=== PATIENT | female | born 1980 | race Caucasian/White ===

== ENCOUNTER 2016-08-10 05:45 | Inpatient (IN) | payer BC ==
--- NOTE | 2016-08-09 06:41 | P.HPOB ---
History of Present Illness H&P Date: 08/09/16 Chief Complaint: Patient is presenting for repeat and tubal ligation. This patient is a pleasant 36-year-old 2 para 1 female estimated date of confinement 08/17/2016 estimated gestational age 39-0/7 weeks who presents to labor and delivery for requested repeat section. Patient's care has been uncomplicated with the exception of large for gestational age. Patient's had a previous section. At this point as requested repeat and was also requesting permanent sterilization. Review of Systems Constitutional: Denies chills, Denies fever Ears, nose, mouth and throat: Denies headache, Denies sore throat Cardiovascular: Denies chest pain, Denies shortness of breath Respiratory: Denies cough Gastrointestinal: Reports heartburn Genitourinary: Reports Menstruation: Reports amenorrhea Musculoskeletal: Denies myalgias Integumentary: Denies pruritus, Denies rash Neurological: Denies numbness, Denies weakness Psychiatric: Denies anxiety, Denies depression Endocrine: Denies fatigue, Denies weight change Past Medical History Past Medical History: No Reported History History of Any Multi-Drug Resistant Organisms: None Reported Past Surgical History: Section, Cholecystectomy, Tonsillectomy Past Anesthesia/Blood Transfusion Reactions: Family History of Problems w/ Anesthesia, Motion Sickness, Postoperative Nausea & Vomiting (PONV) Additional Past Anesthesia/Blood Transfusion Reaction / Comment(s): FAMILY HISTORY OF PONV Past Psychological History: No Psychological Hx Reported Smoking Status: Never smoker Past Alcohol Use History: None Reported Past Drug Use History: None Reported - Past Family History Father Family Medical History: Cancer, Diabetes Mellitus Additional Family Medical History / Comment(s): skin cancer Mother Family Medical History: Cancer Additional Family Medical History / Comment(s): breast cancer Medications and Allergies Home Medications Medication Instructions Recorded Confirmed Type Pnv with Ca,No.72/Iron/FA 1 each PO DAILY 08/02/16 08/02/16 History [ Plus Tablet] Allergies Allergy/AdvReac Type Severity Reaction Status Date / Time erythromycin base Allergy Rash/Hives Verified 08/02/16 12:30 [Erythromycin Base] Penicillins Allergy Rash/Hives Verified 08/02/16 12:30 Sulfa (Sulfonamide Allergy Rash/Hives Verified 08/02/16 12:30 Antibiotics) codeine phosphate AdvReac Vomiting Verified 08/02/16 12:30 [From Tylenol-Codeine #3] Exam - OBG Physical Exam Abdomen: bowel sounds normal, no diffuse tenderness, no bruit present, no guarding noted, no hepatomegaly, no splenomegaly, no mass Vulva: both: normal Vagina: normal moisture, no discharge Cervix: Cervix in the office is closed and thick. Cervix: no lesion, no discharge Uterus: enlarged (Fundal height is significantly larger than dates consistent with macrosomia and maternal obesity.) Results blood work shows she is A positive, rubella immune, RPR nonreactive, HIV nonreactive, hepatitis B negative, Glucola was abnormal with a normal three- hour gtt., ultrasound has shown macrosomia, group B strep was negative. Patient was counseled as to her age and increased risk of genetic disorders etc. she had declined any special testing by maternal medicine. Assessment and Plan (1) Third trimester Narrative/Plan: This is a pleasant 36-year-old 2 para 1 female 39-0/7 weeks gestation with previous section who is requesting repeat section and also requesting permanent sterilization. Plan at this time is repeat low transverse section and bilateral partial salpingectomy. Patient does understand that a tubal ligation is considered permanent, there is a failure rate of approximately 20-25 per thousand procedures done. She understands if she did become she has a 50% chance of tubal or an ectopic . Patient also understands surgery itself and apparently has risks including risks of infection, bleeding, possible injury to bowel, bladder, vessels, and other organs. Patient understands risk of DVT and pulmonary embolism. All the patient's questions are answered written consent is obtained. Status: Acute (2) Previous delivery affecting Status: Acute (3) Family planning Status: Acute (4) Maternal obesity affecting , antepartum Status: Acute (5) Elderly multigravida Status: Acute
[2016-08-10] MEDS ORDERED: CITRIC ACID-SODIUM CITRATE 15 ML CUP PO ONE (05:57)
[2016-08-10] MEDS ORDERED: LACTATED RINGERS 1,000 ML IV ONE (05:57)
[2016-08-10] MEDS ORDERED: LACTATED RINGERS 1,000 ML IV SCH (05:57)
[2016-08-10 06:15] LABS: Basophils % (A) 0 %; CH 29.5; CHCM 33.5; Eosinophils # (A) 0.2 k/uL (0-0.7); Eosinophils % (A) 2 %; HCT 40.7 % (34.0-46.0); HDW 2.67; HGB 14.5 gm/dL (11.4-16.0); Luc # (Auto) 0.15; Luc % (Auto) 2; Lymphocytes # (A) 1.7 k/uL (1.0-4.8); Lymphocytes % (A) 17 %; MCH 31.5 pg (25.0-35.0); MCHC 35.6 g/dL (31.0-37.0); MCV 88.4 fL (80.0-100.0); Mean Platelet Volume 7.9; Monocytes # (A) 0.4 k/uL (0-1.0); Monocytes % (A) 4 %; Neutrophils # (A) 7.7 k/uL (1.3-7.7); Neutrophils % (A) 76 %; RDW 14.1 % (11.5-15.5); WBC 10.2 k/uL (3.8-10.6); WBC (Perox) 10.82
[2016-08-10 06:54] VITALS: BMI 47.4
[2016-08-10] MEDS ORDERED: ceFAZolin 3 GM in SODIUM CHLORIDE 0.9% 100 ML IVPB ONE (07:15)
[2016-08-10] MEDS ORDERED: MORPHINE SULFATE (PF) 0.3 MG/0.3 ML SYR ONE (07:43)
[2016-08-10] MEDS ORDERED: OXYTOCIN 10 UNIT/ML 1 ML VIAL IM ONE (07:43)
[2016-08-10] MEDS ORDERED: ONDANSETRON 4 MG/2 ML VIAL ONE (07:43)
[2016-08-10] MEDS ORDERED: KETOROLAC 30 MG/ML 1 ML VIAL ONE (07:43)
[2016-08-10] MEDS ORDERED: ePHEDrine 50 MG/ML 1 ML AMP ONE (07:43)
[2016-08-10] MEDS ORDERED: NALBUPHINE 10 MG/ML AMPUL ONE (07:43)
[2016-08-10] MEDS ORDERED: ACETAMINOPHEN TAB 325 MG TAB PO PRN (08:27)
[2016-08-10] MEDS ORDERED: METOCLOPRAMIDE 5 MG/ML 2 ML VIAL IVP PRN (08:27)
[2016-08-10] MEDS ORDERED: diphenhydrAMINE 25 MG CAP PO PRN (08:27)
[2016-08-10] MEDS ORDERED: HYDROcodone/APAP 5-325MG 1 EACH TAB PO PRN (08:27)
[2016-08-10] MEDS ORDERED: SIMETHICONE 80 MG CHEWABLE PO PRN (08:27)
[2016-08-10] MEDS ORDERED: diphenhydrAMINE 50 MG/ML 1 ML VIAL IVP PRN ×2 (08:27→11:53)
[2016-08-10] MEDS ORDERED: ZOLPIDEM 5 MG TAB PO PRN (08:27)
--- NOTE | 2016-08-10 08:31 | P.OP ---
Date of Procedure: 08/10/16 Preoperative Diagnosis: #1: 39 weeks intrauterine . #2: Previous section desires repeat. 3: Multi parity desires permanent sterilization. Postoperative Diagnosis: Same Procedure(s) Performed: #1: Repeat low transverse section. #2: Bilateral partial salpingectomy. Anesthesia: spinal Surgeon: Bogdan Connell Net Ui Developer #1: Mendez Fisher Estimated Blood Loss (ml): 800 Pathology: other (Placenta and bilateral fallopian tube segments) Condition: stable Disposition: floor Indications for Procedure: Please see dictated H&P for intimate details of this patient's admission. Brief summary this is a pleasant 36-year-old 2 para 1 female 39 weeks gestation who is admitted to labor and delivery for elective repeat section and also requesting permanent sterilization. Patient understands a tubal ligation is a permanent procedure that does have a failure rate however approximately 20-25 per thousand procedures done. She understands she does become she is a 50% chance of a tubal or an ectopic . Patient also understands that surgery itself and apparently has risks including risks of infection, bleeding, possible injury to bowel, bladder, vessels, and/ or other organs. She understands risk of DVT and pulmonary embolism. All the patient's questions are answered written consent is obtained. Operative Findings: This is a vigorous viable male infant Apgars 9 and 9 delivery time was 0756 hours. has spontaneous respirations and good cry and grossly appears normal. Description of Procedure: This patient has a Edmond catheter placed to straight drain. She is subsequently taken to the operating room where she sat up and spinal anesthetic is administered without incident. With an adequate level of anesthesia she has abdominal prep and drape. Scalpels and taken the previous Pfannenstiel incision is incised. A second scalpel is taken down the fascia and the fascia scored with scalpel. Fascial incision extended bilaterally using the Lopez scissors. The fascia is then dissected sharply off the rectus muscles with the Lopez scissors. The rectus muscles are , and the peritoneum identified , and entered sharply. Peritoneal incision extended superiorly and inferiorly without difficulty using the Metzenbaum scissors. Bladder blade is then placed. Bladder peritoneum was taken off the lower uterine segment sharply. Scalpels then taken low transverse uterine incision is then made. I then gently into the uterine cavity with a hemostat and there is loss of a large amount of clear fluid. This incision is extended bluntly. Infant's head is then guided through the incision mouth and nares are bulb suctioned. There is no evidence of a nuchal cord. We then have delivery the anterior and posterior shoulder and rest this infant's body. This is a vigorous viable male Apgars are 9 and 9 delivery time was 0756 hours. has spontaneous respirations and good cry and grossly appears normal. After delivery of the the umbilical cord is doubly clamped and cut it appears to be trivascular. The placenta is then manually extracted intact. The uterus is then externalized. Uterine incision is then closed using 0 Vicryl in a running fashion and good hemostasis is noted. Then turned my attention of the left fallopian tube approximately 4 cm from the cornual insertion a small window made to the mesial salpinx using Bovie cautery. Using a 2-0 silk I doubly ligate a segment of the tube. A proximally 2 cm segment of fallopian tubes excised and handed off to pathology. Cauterization is done of the tubal ends severe hemostatic. Then turned my attention of the right fallopian tube and using a similar technique a portion of the right tube was ligated and removed. With this done excess fluid is removed from the pelvis. Uterus placed back into the pelvis. The parietal peritoneum was identified. I inspected fallopian tubes once again the appear to be hemostatic. Peritoneum was then closed using 0 Vicryl running fashion. Rectus muscles reapproximated in 0 Vicryl interrupted fashion. Fascia is then closed using 0 PDS. Fascial incision is intact and hemostatic. Subcutaneous tissues and closed using a 3-0 Vicryl. Skin is and closed using luiz. All counts are correct 3. There are no complications. and mother are taken to the birthing suite in satisfactory condition.
[2016-08-10] MEDS: LACTATED RINGERS 1,000 ML IV SCH ×2 (09:12→14:32)
[2016-08-10] MEDS: OXYTOCIN 30 UNITS/500 ML NS 30 UNIT in SALINE 1 500ML.BAG IV SCH ×3 (09:18→21:38)
[2016-08-10] MEDS ORDERED: NALBUPHINE 10 MG/ML AMPUL IV PRN (11:53)
[2016-08-10] MEDS ORDERED: MORPHINE SULFATE 4 MG/ML SYRINGE IVP PRN (11:53)
[2016-08-10] MEDS ORDERED: NALOXONE 0.4 MG/ML 1 ML VIAL IV PRN (11:53)
[2016-08-10] MEDS ORDERED: ONDANSETRON 4 MG/2 ML VIAL IVP PRN (11:53)
[2016-08-10] MEDS: SENNOSIDES-DOCUSATE SODIUM 1 EACH TAB PO SCH (21:37)
[2016-08-11] MEDS: KETOROLAC 30 MG/ML 1 ML VIAL IVP PRN ×2 (03:32→12:06)
--- NOTE | 2016-08-11 06:05 | P.PNOBGPC ---
Subjective - Subjective Patient reports: Reports appetite normal, Reports voiding normally, Reports pain well controlled, Reports ambulating normally : doing well Objective - Vital Signs Latest vital signs: Vital Signs Temp Pulse Resp BP Pulse Ox 08/11/16 03:18 98.2 F 85 15 115/75 08/10/16 23:40 98.0 F 74 16 111/54 98 08/10/16 20:00 97.7 F 70 16 120/66 97 08/10/16 16:00 97.4 F L 65 16 118/68 08/10/16 12:53 97.8 F 69 16 100/69 08/10/16 10:28 95.3 F L 60 16 108/58 08/10/16 09:58 96.3 F L 78 16 155/60 94 L 08/10/16 09:28 96.6 F L 87 16 126/55 96 08/10/16 09:13 96.6 F L 76 16 121/67 95 08/10/16 08:58 96.3 F L 16 112/58 95 08/10/16 08:43 96.5 F L 87 16 120/64 98 08/10/16 08:28 96.1 F L 73 16 116/55 98 Intake and Output 08/10/16 08/10/16 08/11/16 14:59 22:59 06:59 Intake Total 900 Output Total 450 1700 1000 Balance -450 -800 -1000 Intake: Intake, IV Titration 900 Amount Lactated Ringers 1,000 ml 900 @ 125 mls/hr IV .Q8H CLAUDE Rx#:[id number] Output: Urine 100 1300 1000 Straight 1000 Uretheral (Edmond) 450 Emesis 350 400 Other: Voiding Method Indwelling Catheter Indwelling Catheter # Voids 1 0 - Exam Lungs: bilateral: normal Chest: Normal S1, Normal S2 Extremities: Present: normal Abdomen: Present: normal appearance, soft. Absent: distention, tenderness Incision: Present: normal, dry, intact Uterus: Present: normal, firm Assessment and Plan (1) Third trimester Narrative/Plan: Post operative day #1. Patient is resting without complaints. Vital signs are stable she is afebrile. Uterus is firm nontender and her incision is intact and dry. My impression is this is a normal postoperative course. Plan today is to check a CBC, advance her diet, allow her to shower, and encourage ambulation. Current Visit: Yes Status: Acute Code(s): Z33.1 - STATE, INCIDENTAL SNOMED Code(s): 62604158 (2) Previous delivery affecting Current Visit: Yes Status: Acute Code(s): O34.219 - MATERNAL CARE FOR UNSP TYPE SCAR FROM PREVIOUS DEL SNOMED Code(s): 086351775 (3) Family planning Current Visit: Yes Status: Acute Code(s): Z30.09 - ENCOUNTER FOR OT GENERAL CNSL AND ADVICE ON CONTRACEPTION SNOMED Code(s): 62440587 (4) Maternal obesity affecting , antepartum Current Visit: Yes Status: Acute Code(s): O99.210 - OBESITY COMPLICATING , UNSPECIFIED TRIMESTER; E66.9 - OBESITY, UNSPECIFIED SNOMED Code(s) : 620308314532 (5) Elderly multigravida Current Visit: Yes Status: Acute Code(s): O09.529 - SUPERVISION OF ELDERLY MULTIGRAVIDA, UNSPECIFIED TRIMESTER SNOMED Code(s): 716024784
[2016-08-11 08:05] LABS: Basophils % (A) 0 %; CH 29.6; CHCM 32.8; Eosinophils # (A) 0.1 k/uL (0-0.7); Eosinophils % (A) 1 %; HCT 35.7 % (34.0-46.0); HDW 2.57; Luc # (Auto) 0.11; Luc % (Auto) 1; Lymphocytes # (A) 1.1 k/uL (1.0-4.8); Lymphocytes % (A) 9 %; MCHC 31.9 g/dL (31.0-37.0); MCV 90.9 fL (80.0-100.0); Mean Platelet Volume 8.9; Monocytes # (A) 0.7 k/uL (0-1.0); Monocytes % (A) 5 %; Neutrophils # (A) 11.1 k/uL (1.3-7.7); Neutrophils % (A) 84 %; RBC 3.93 m/uL (3.80-5.40); RDW 14.3 % (11.5-15.5); WBC 13.2 k/uL (3.8-10.6); WBC (Perox) 13.85
[2016-08-11] MEDS: SENNOSIDES-DOCUSATE SODIUM 1 EACH TAB PO SCH ×2 (08:09→19:22)
[2016-08-11 08:11] LABS: HGB 11.4 gm/dL (11.4-16.0)
--- NOTE | 2016-08-11 08:18 | P.PN ---
Progress Note - Text Date: 08/11/2016 Time: 727 The patient is status post section Vital signs stable VAS: 0-10 Patient has no complaints of pain. The patient incurred some minimal itching yesterday, this itching is now subsiding. Pain meds to be managed by service.
[2016-08-11] MEDS: IBUPROFEN 600 MG TAB PO PRN (19:22)
[2016-08-12] MEDS: IBUPROFEN 600 MG TAB PO PRN ×2 (01:48→11:52)
--- NOTE | 2016-08-12 06:10 | P.PNOBGPC ---
Subjective - Subjective Patient reports: Reports appetite normal, Reports voiding normally, Reports pain well controlled, Reports ambulating normally : doing well Objective - Vital Signs Latest vital signs: Vital Signs Temp Pulse Resp BP 08/12/16 00:00 98.3 F 73 16 109/63 08/11/16 18:31 97.7 F 90 16 121/65 08/11/16 12:00 97.8 F 95 20 120/71 08/11/16 08:00 98.2 F 81 16 96/54 Intake and Output 08/11/16 08/11/16 08/12/16 14:59 22:59 06:59 Output Total 400 Balance -400 Output: Urine 400 Other: # Voids 1 3 - Exam Lungs: bilateral: normal Chest: Normal S1, Normal S2 Extremities: Present: normal Abdomen: Present: normal appearance, soft. Absent: distention, tenderness Incision: Present: normal, dry, intact Uterus: Present: normal, firm - Labs Labs: Abnormal Lab Results - Last 24 Hours (Table) 08/11/16 Range/Units 07:52 WBC 13.2 H (3.8-10.6) k/uL Neutrophils # 11.1 H (1.3-7.7) k/uL Assessment and Plan (1) Third trimester Narrative/Plan: Postoperative day #2. Patient is resting without complaints and wishes to go home. Vital signs are stable and she is afebrile. Uterus is firm nontender she 's having normal lochia. Her incision is intact and dry. Patient is tolerating regular diet, ambulating, and urinating without difficulty. My impression that she is having a normal postoperative course and stable for discharge home. Plan is to continue routine care discharge home later today. Current Visit: Yes Status: Acute Code(s): Z33.1 - STATE, INCIDENTAL SNOMED Code(s): 17736387 (2) Previous delivery affecting Current Visit: Yes Status: Acute Code(s): O34.219 - MATERNAL CARE FOR UNSP TYPE SCAR FROM PREVIOUS DEL SNOMED Code(s): 070166781 (3) Family planning Current Visit: Yes Status: Acute Code(s): Z30.09 - ENCOUNTER FOR OTH GENERAL CNSL AND ADVICE ON CONTRACEPTION SNOMED Code(s): 27958830 (4) Maternal obesity affecting , antepartum Current Visit: Yes Status: Acute Code(s): O99.210 - OBESITY COMPLICATING , UNSPECIFIED TRIMESTER; E66.9 - OBESITY, UNSPECIFIED SNOMED Code(s) : 014391933605 (5) Elderly multigravida Current Visit: Yes Status: Acute Code(s): O09.529 - SUPERVISION OF ELDERLY MULTIGRAVIDA, UNSPECIFIED TRIMESTER SNOMED Code(s): 903695662
--- NOTE | 2016-08-12 06:12 | P.DS ---
Providers Date of admission: 08/10/16 05:45 Expected date of discharge: 08/12/16 Attending physician: Bogdan Connell Primary care physician: Stated None - Discharge Diagnosis(es) (1) Third trimester Current Visit: Yes Status: Acute (2) Previous delivery affecting Current Visit: Yes Status: Acute (3) Family planning Current Visit: Yes Status: Acute (4) Maternal obesity affecting , antepartum Current Visit: Yes Status: Acute (5) Elderly multigravida Current Visit: Yes Status: Acute Hospital Course: Please see dictated H&P for intimate details of this patient's admission. In brief summary is a pleasant 36-year-old 2 para 1 female who is 39-0/7 weeks gestation who is admitted for elective repeat section and tubal ligation. Patient is admitted undergoes above-named surgeries. Please see dictated operative note. By postoperative 2 patient is doing well felt to be stable for discharge home follow up with me in 1 week. Procedures: Repeat low transverse section and bilateral partial salpingectomy. Patient Condition at Discharge: Good Plan - Discharge Summary New Discharge Prescriptions: HYDROcodone/APAP 5-325MG [[place] 5-325] 1 each PO Q4HR PRN #30 tab PRN Reason: Pain Ibuprofen [Motrin] 600 mg PO Q6HR PRN #40 tab PRN Reason: Mild Pain Or Fever >= 100.5 Discharge Medication List Pnv with Ca,No.72/Iron/FA [ Plus Tablet] 1 each PO DAILY 08/02/16 [ History] HYDROcodone/APAP 5-325MG [[place] 5-325] 1 each PO Q4HR PRN #30 tab 08/12/16 [Rx] Ibuprofen [Motrin] 600 mg PO Q6HR PRN #40 tab 08/12/16 [Rx] Follow up Appointment(s)/Referral(s): Bogdan Connell MD [STAFF PHYSICIAN] - 08/17/16 1:30 pm (She also has a check on September 22 at 9:45 AM.) Patient Instructions/Handouts: (DC) Activity/Diet/Wound Care/Special Instructions: No heavy lifting or strenuous activity for 6 weeks. No intercourse or anything per vagina for 6 weeks. Please call if any fever, chills, excessive vaginal bleeding, and/or abdominal pain. Discharge Disposition: HOME SELF-CARE
[2016-08-12 08:47] VITALS: BP 126/68; PULSE 74; RESP 18; TEMP 97.4
[2016-08-12] MEDS: SENNOSIDES-DOCUSATE SODIUM 1 EACH TAB PO SCH (08:47)
[2016-08-12] MEDS: LACTATED RINGERS 1,000 ML IV SCH (08:49)
== END 2016-08-12 12:14 | disposition home or self-care (01) | DRG 766 ==
LOC: 4FBP 05:45
PROVIDERS: ADMIT Obstetrics & Gynecology; ATTEND Obstetrics & Gynecology
PROC: 10D00Z1 Extraction of Products of Conception, Low, Open Approach (ICD-10-PCS; principal; 2016-08-10 08:00)
PROC: 0UB70ZZ Excision of Bilateral Fallopian Tubes, Open Approach (ICD-10-PCS; principal; 2016-08-10 08:00)
DX: O34.211 Maternal care for low transverse scar from previous cesarean delivery (principal); O99.214 Obesity complicating childbirth; Z37.0 Single live birth; O36.63X0 Maternal care for excessive fetal growth, third trimester, not applicable or unspecified; Z30.2 Encounter for sterilization; Z3A.39 39 weeks gestation of pregnancy; Z88.1 Allergy status to other antibiotic agents; Z88.5 Allergy status to narcotic agent; Z88.0 Allergy status to penicillin; Z88.2 Allergy status to sulfonamides; O09.523 Supervision of elderly multigravida, third trimester
CPT/HCPCS: 85025; 86850; 86900; 86901; 88302; 88307

== ENCOUNTER → 2016-12-20 | Outpatient (CLI) | payer BC | END | disposition home or self-care (01) | LOC: LABWHC1 15:44 | DX: Z53.9 Procedure and treatment not carried out, unspecified reason (principal) ==

== ENCOUNTER → 2017-03-21 | Outpatient (CLI) | payer BC | END | disposition home or self-care (01) | LOC: LABWHC1 15:50 | PROVIDERS: ATTEND Pathology Anatomic Pathology & Clinical Pathology | DX: Z11.4 Encounter for screening for human immunodeficiency virus [HIV] (principal) | CPT/HCPCS: 36415 ==

== ENCOUNTER → 2019-02-13 | Outpatient (CLI) | payer BC ==
[2019-02-13 19:32] LABS: Thyroid Peroxidase Antibodies <28.0 U/mL (0.0-60.0)
== END | disposition home or self-care (01) ==
LOC: LABWHC1 13:20
PROVIDERS: ATTEND Internal Medicine Endocrinology, Diabetes & Metabolism
DX: R53.83 Other fatigue (principal)
CPT/HCPCS: 36415; 82024; 82533; 82607; 84146; 84439; 84443; 84481; 86376

== ENCOUNTER 2020-02-24 06:20 | Day surgery (SDC) | payer BC ==
[2020-02-20 15:42] VITALS: BMI 41.5
--- NOTE | 2020-02-23 11:14 | P.HPOB ---
History of Present Illness H&P Date: 02/23/20 Chief Complaint: Menorrhagia This patient is a pleasant 39 yr females with longstanding menorrhagia who is requesting endometrial ablation for treatment. Evaluation has included a pelvis ultrasound that shows a small fibroid. She has declined trial of hormonal treatment. Review of Systems Genitourinary: Reports as per HPI Menstruation: Reports as per HPI, Reports period heavy Past Medical History Past Medical History: No Reported History Additional Past Medical History / Comment(s): on metformin for weight loss. heavy menstrual bleeding History of Any Multi-Drug Resistant Organisms: None Reported Past Surgical History: Section, Cholecystectomy, Tonsillectomy, Tubal Ligation Additional Past Surgical History / Comment(s): LIPOMA REMOVED FROM RT THIGH Past Anesthesia/Blood Transfusion Reactions: Family History of Problems w/ Anesthesia, Postoperative Nausea & Vomiting (PONV) Additional Past Anesthesia/Blood Transfusion Reaction / Comment(s): FAMILY HISTORY OF PONV Past Psychological History: No Psychological Hx Reported Smoking Status: Former smoker Past Alcohol Use History: None Reported Past Drug Use History: None Reported - Past Family History Father Family Medical History: Cancer, Diabetes Mellitus, Hypertension Additional Family Medical History / Comment(s): skin cancer Mother Family Medical History: Cancer Additional Family Medical History / Comment(s): breast cancer Medications and Allergies Home Medications Medication Instructions Recorded Confirmed Type FLUoxetine HCL [PROzac] 20 mg PO DAILY 02/20/20 02/20/20 History metFORMIN HCL [Glucophage] 500 mg PO DAILY 02/20/20 02/20/20 History Allergies Allergy/AdvReac Type Severity Reaction Status Date / Time erythromycin base Allergy Rash/Hives Verified 02/20/20 15:34 [Erythromycin Base] Penicillins Allergy Rash/Hives Verified 02/20/20 15:34 Sulfa (Sulfonamide Allergy Rash/Hives Verified 02/20/20 15:34 Antibiotics) codeine phosphate AdvReac Vomiting Verified 02/20/20 15:34 [From Tylenol-Codeine #3] Exam - OBG Physical Exam Abdomen: bowel sounds normal, no diffuse tenderness, no bruit present, no guarding noted, no hepatomegaly, no splenomegaly, no mass Vagina: normal moisture, no discharge Cervix: no lesion, no discharge Uterus: normal size, normal contour Results Ultrasound done earlier this year shows a 2.9cm fibroid. Assessment and Plan Assessment: This is a pleasant 39 yr female with menorrhagia requesting endometrial ablation for treatment. Plan is hysteroscopy, D&C and Novasure endometrial ablation. She and I have discussed this surgery and risks: infection, bleeding, possible uterine perforation and/or thermal injury. All of the patients questions have been answered and a written consent obtained. (1) Menorrhagia Status: Acute Code(s): N92.0 - EXCESSIVE AND FREQUENT MENSTRUATION WITH REGULAR CYCLE SNOMED Code(s): 770153431 (2) Uterine fibroid Status: Acute Code(s): D25.9 - LEIOMYOMA OF UTERUS, UNSPECIFIED SNOMED Code(s): 59147907
[~2020-02-24 06:20] MED LIST: DEXAMETHASONE SOD PHOSPHATE 10 MG/ML 1 ML VIAL IV ONE; HYDROmorphone 0.5 MG/0.5 ML SYRINGE IVP PRN; LACTATED RINGERS 1,000 ML IV SCH; LIDOCAINE 1% (10MG/ML) FOR IV START INTRADERMA PRN; ONDANSETRON 4 MG/2 ML VIAL IVP ONE; Pre Op ABX Message 1 EACH MISC MISCELLANE ONE; SCOPOLAMINE 1.5MG/72HR PATCH TRANSDERM ONE
[2020-02-24] MEDS ORDERED: ONDANSETRON 4 MG/2 ML VIAL ONE (07:01)
[2020-02-24 07:07] LABS: Glucose,Whole Blood 97 mg/dL (75-99)
[2020-02-24] MEDS ORDERED: MIDAZOLAM 2 MG/2 ML VIAL ONE (07:21)
[2020-02-24] MEDS ORDERED: fentaNYL (PF) 50 MCG/ML 2 ML AMP ONE (07:21)
[2020-02-24] MEDS ORDERED: LIDOCAINE 1% INJ 10MG/ML (20 ML MDV) ONE (07:21)
[2020-02-24] MEDS ORDERED: PROPOFOL 10 MG/ML 20 ML VIAL IV ONE (07:21)
[2020-02-24] MEDS ORDERED: GLYCOPYRROLATE 0.2 MG/ML 2 ML VIAL ONE (07:21)
[2020-02-24] MEDS ORDERED: KETOROLAC 30 MG/ML 1 ML VIAL ONE (07:21)
--- NOTE | 2020-02-24 08:01 | P.OP ---
Date of Procedure: 02/24/20 Preoperative Diagnosis: Menorrhagia Postoperative Diagnosis: Same Procedure(s) Performed: #1: Hysteroscopy. #2: Dilation and curettage. #3: NovaSure endometrial ablation Anesthesia: other (LMA) Surgeon: Bogdan Connell Estimated Blood Loss (ml): 15 Urine output (ml): 25 Pathology: other (Uterine curettings) Condition: stable Disposition: PACU Indications for Procedure: Please see dictated H&P for intimate details of this patient's admission. Brief summary this is a pleasant 39-year-old 2 para 2 female whose had long- standing menorrhagia and known uterine fibroid requesting trial of NovaSure endometrial ablation for treatment. Patient understands this surgery and risks including risks of infection, bleeding, possible uterine perforation, and/or thermal injury. All the patient's questions are answered and a written consent is obtained. Operative Findings: This patient had a normal-appearing endometrial cavity Description of Procedure: This patient is taken to the operating room where she is laid in the supine position. She subsequently undergoes general anesthesia without incident. With an adequate level of anesthesia she's placed in dorsal lithotomy position. At this time she has a vaginal and perineal prep and drape. Examination under anesthesia shows a mid position uterus of normal size. I placed a weighted speculum posterior vagina. The bladder is drained for 25 mL of clear urine. The anterior lip of the cervix and then grabbed with an Allis clamp. The uterus is then sounded to approximately 9 cm. Gentle dilation is done of the endocervix to allow the hysteroscope into the uterine cavity. Using saline solution hysteroscopy is performed uterine cavity is observed. There is no obvious growths. This time the cavity is measured at 6 cm in length. Hys teroscope was removed. The cervix is then dilated more to allow the small curette into the uterine cavity a gentle but thorough 4 quadrant curettage is then done. This done the NovaSure device is then opened it appears to be intact. It is set at a length of 6.0 cm and seated in place at 2.6 cm. It is then enabled and 86 W setting for 45 seconds. Cavity test is passed. With this done the NovaSure device is removed. Appears intact. Hysteroscopy is performed again and the endometrial cavity appears ablated up to the endocervix. With this completed the procedure is ended. The Allis clamp and weighted speculum were removed. All counts correct 3. There are no complications. Patient is awakened from anesthesia and taken recovery room in satisfactory condition
[2020-02-24 08:04] VITALS: TEMP 97.3
[2020-02-24 08:27] VITALS: RESP 16
[2020-02-24 09:10] VITALS: BP 120/69; PULSE 63
== END 2020-02-24 09:20 | disposition home or self-care (01) ==
LOC: OR 06:20
PROVIDERS: ATTEND Obstetrics & Gynecology
DX: N92.0 Excessive and frequent menstruation with regular cycle (principal); D25.9 Leiomyoma of uterus, unspecified; N84.0 Polyp of corpus uteri; E11.9 Type 2 diabetes mellitus without complications; E66.9 Obesity, unspecified; Z98.51 Tubal ligation status; Z90.89 Acquired absence of other organs; Z90.49 Acquired absence of other specified parts of digestive tract; Z98.890 Other specified postprocedural states; Z87.891 Personal history of nicotine dependence; Z83.3 Family history of diabetes mellitus; Z82.49 Family history of ischemic heart disease and other diseases of the circulatory system; Z80.8 Family history of malignant neoplasm of other organs or systems; Z80.3 Family history of malignant neoplasm of breast; Z79.84 Long term (current) use of oral hypoglycemic drugs; Z79.899 Other long term (current) drug therapy; Z88.1 Allergy status to other antibiotic agents; Z88.5 Allergy status to narcotic agent; Z88.0 Allergy status to penicillin; Z88.2 Allergy status to sulfonamides; Z68.41 Body mass index [BMI] 40.0-44.9, adult
CPT/HCPCS: 58563; 81025; 88305; J2250; J1100; J2405; J2001; J3010; J1885; J2704

== ENCOUNTER → 2021-04-01 | Outpatient (CLI) | payer BC ==
--- NOTE | 2021-04-05 12:30 | MM ---
Reason for exam: screening (asymptomatic). Last mammogram was performed 6 years and 4 months ago. History: Family history of breast cancer in mother at age 63. Took hormonal contraceptives for 16 years beginning at age 17. Physical Findings: A clinical breast exam by your physician is recommended on an annual basis and results should be correlated with mammographic findings. MG 3D Screening Mammo W/Cad Bilateral CC and MLO view(s) were taken. Prior study comparison: November 25, 2014, bilateral MG screening mammo w CAD. There are scattered fibroglandular densities. No significant changes when compared with prior studies. ASSESSMENT: Benign, BI-RAD 2 RECOMMENDATION: Routine screening mammogram of both breasts in 1 year.
== END | disposition home or self-care (01) ==
LOC: RADMAMWWP 14:29
PROVIDERS: ATTEND Obstetrics & Gynecology
DX: Z12.31 Encounter for screening mammogram for malignant neoplasm of breast (principal); Z80.3 Family history of malignant neoplasm of breast
CPT/HCPCS: 77063; 77067

== ENCOUNTER → 2021-05-03 | Outpatient (CLI) | payer BC ==
[2021-05-03 15:25] VITALS: BP 152/89; PULSE 88; RESP 18; TEMP 99; BMI 48.1
--- NOTE | 2021-05-03 15:56 | P.HPBAR ---
Bariatric H&P - History & Physicial H&P Date: 05/03/21 History & Physicial: Visit/CC: initial visit Patient initial contact: Initial weight: Initial weight in pounds: Height: 5 ft 5 in Initial BMI: Last weight: Current weight: 131.088 kg Current weight in pounds: 289.00 Current BMI: 48.1 [place] body weight (based on NIH guidelines): 56.699 kg Excess body weight loss: The patient is a 41 year-old F who presents for Bariatric Assessment. Patient presents today for presurgical consultation. She is extensive history. Her BMI is 48. Past Medical History Past Medical History: No Reported History Additional Past Medical History / Comment(s): on metformin for weight loss. heavy menstrual bleeding History of Any Multi-Drug Resistant Organisms: None Reported Past Surgical History: Section, Cholecystectomy, Tonsillectomy, Tubal Ligation, Uterine Ablation Additional Past Surgical History / Comment(s): LIPOMA REMOVED FROM RT THIGH Past Anesthesia/Blood Transfusion Reactions: Family History of Problems w/ Anesthesia, Postoperative Nausea & Vomiting (PONV) Additional Past Anesthesia/Blood Transfusion Reaction / Comm: FAMILY HISTORY OF PONV Past Psychological History: Anxiety Smoking Status: Former smoker Past Alcohol Use History: Occasional Additional Past Alcohol Use History / Comment(s): QUIT SMOKING 2003 Past Drug Use History: None Reported - Past Family History Father Family Medical History: Cancer, Diabetes Mellitus, Hypertension Additional Family Medical History / Comment(s): skin cancer Mother Family Medical History: Cancer Additional Family Medical History / Comment(s): breast cancer Surgical - Exam Vital Signs Temp Pulse Resp BP 99.0 F 88 18 152/89 05/03/21 15:20 05/03/21 15:20 05/03/21 15:20 05/03/21 15:20 - General well developed, well nourished, no distress - Eyes PERRL - ENT normal pinna - Neck no masses - Respiratory normal expansion - Cardiovascular Rhythm: regular - Abdomen Abdomen: soft, non tender Bariatric Assessment & Plan Plan: Morbid obesity. Patient has an excellent understanding of sleeve yesterday. She'll be scheduled for EGD. Bariatric Checklist Checklist: Plan: Checklist: EGD: 1. Hiatal hernia: 2. H. Pylori: HgbA1c: Vitamin D: Smoking: Never smoker Primary care physician referral: Dr. Dumont Psychiatry clearance: Cardiology clearance: Sleep study: Diet journal: VTE risk score: VTE risk level: Rehab needs at discharge:
[2021-05-03 17:17] LABS: HGB 13.8 gm/dL (11.4-16.0); MCH 30.5 pg (25.0-35.0); MCHC 32.9 g/dL (31.0-37.0); MCV 92.6 fL (80.0-100.0); Mean Platelet Volume 8.4; Platelet Count 221 k/uL (150-450); RBC 4.53 m/uL (3.80-5.40); RDW 12.8 % (11.5-15.5); WBC 7.7 k/uL (3.8-10.6)
[2021-05-04 01:49] LABS: Hemoglobin A1C 5.1 % (4.0-6.0)
[2021-05-04 05:48] LABS: African American GFR (CKD) 106.9 (60.0-200.0); Albumin 4.3 g/dL (3.80-4.90); Albumin/Globulin Ratio 1.79 (1.60-3.17); Anion Gap 13.3 mmol/L (4.00-12.00); BUN/Creat Ratio 18.75 Ratio (12.00-20.00); Calcium 9.3 mg/dL (8.7-10.3); Carbon Dioxide 21.7 mmol/L (21.6-31.8); Globulin 2.4 g/dL (1.6-3.3); Non-African American GFR(CKD) 92.2 (60.0-200.0); Potassium 4.6 mmol/L (3.5-5.5); Total Bilirubin 0.4 mg/dL (0.2-1.2); Total Protein 6.7 g/dL (6.2-8.2)
[2021-05-04 06:11] LABS: Folate, Serum 16.9 ng/mL
== END | disposition home or self-care (01) ==
LOC: BARWHC3 14:49
PROVIDERS: ATTEND Surgery
DX: E66.01 Morbid (severe) obesity due to excess calories (principal)
CPT/HCPCS: 80053; 82306; 82607; 82746; 83036; 84425; 85027; 93005; 99203

== ENCOUNTER → 2021-05-31 | Outpatient (CLI) | payer BC ==
[2021-05-31 11:39] VITALS: BMI 47.5
== END | disposition home or self-care (01) ==
LOC: BARWHC3 08:48
PROVIDERS: ATTEND Surgery
DX: E66.01 Morbid (severe) obesity due to excess calories (principal); Z71.3 Dietary counseling and surveillance
CPT/HCPCS: 97804

== ENCOUNTER 2021-06-03 08:54 | Day surgery (SDC) | payer BC ==
[2021-06-01 14:16] VITALS: BMI 47.4
[~2021-06-03 08:54] MED LIST changes: -DEXAMETHASONE SOD PHOSPHATE 10 MG/ML 1 ML VIAL IV ONE; -HYDROmorphone 0.5 MG/0.5 ML SYRINGE IVP PRN; -ONDANSETRON 4 MG/2 ML VIAL IVP ONE; -Pre Op ABX Message 1 EACH MISC MISCELLANE ONE; -SCOPOLAMINE 1.5MG/72HR PATCH TRANSDERM ONE
[2021-06-03 09:31] VITALS: TEMP 97
[2021-06-03] MEDS ORDERED: PROPOFOL 10 MG/ML 20 ML VIAL IV ONE (10:17)
[2021-06-03] MEDS ORDERED: LIDOCAINE 1% INJ 10MG/ML (20 ML MDV) ONE (10:17)
--- NOTE | 2021-06-03 10:22 | P.GSHP ---
History of Present Illness H&P Date: 06/03/21 Chief Complaint: GERD, morbid obesity This a 41-year-old female undergoing workup for sleeve gastrectomy. Patient's complaints of GERD. Her BMI is 48 Past Medical History Past Medical History: No Reported History Additional Past Medical History / Comment(s): on metformin for weight loss. heavy menstrual bleeding History of Any Multi-Drug Resistant Organisms: None Reported Past Surgical History: Section, Cholecystectomy, Tonsillectomy, Tubal Ligation, Uterine Ablation Additional Past Surgical History / Comment(s): LIPOMA REMOVED FROM RT THIGH Past Anesthesia/Blood Transfusion Reactions: Family History of Problems w/ Anesthesia, Postoperative Nausea & Vomiting (PONV) Additional Past Anesthesia/Blood Transfusion Reaction / Comment(s): FAMILY HISTORY OF PONV Smoking Status: Former smoker - Past Family History Father Family Medical History: Cancer, Diabetes Mellitus, Hypertension Additional Family Medical History / Comment(s): skin cancer Mother Family Medical History: Cancer Additional Family Medical History / Comment(s): breast cancer Medications and Allergies Home Medications Medication Instructions Recorded Confirmed Type FLUoxetine HCL [PROzac] 40 mg PO DAILY 02/20/20 06/03/21 History Allergies Allergy/AdvReac Type Severity Reaction Status Date / Time erythromycin base Allergy Rash/Hives Verified 06/03/21 09:22 [Erythromycin Base] Penicillins Allergy Rash/Hives Verified 06/03/21 09:22 Sulfa (Sulfonamide Allergy Rash/Hives Verified 06/03/21 09:22 Antibiotics) codeine phosphate AdvReac Vomiting Verified 06/03/21 09:22 [From Tylenol-Codeine #3] Surgical - Exam Vital Signs Temp Pulse Resp BP Pulse Ox 97.0 F L 76 18 128/79 97 06/03/21 09:25 06/03/21 09:25 06/03/21 09:25 06/03/21 09:25 06/03/21 09:25 - General well developed, well nourished - Eyes PERRL - ENT normal pinna - Neck no masses - Respiratory normal expansion - Cardiovascular Rhythm: regular - Abdomen Abdomen: soft, non tender Assessment and Plan Assessment: GERD, morbid obesity. We'll perform EGD
--- NOTE | 2021-06-03 10:28 | P.OP ---
Date of Procedure: 06/03/21 Preoperative Diagnosis: GERD Morbid obesity Postoperative Diagnosis: gerd Morbid obesity Procedure(s) Performed: EGD Anesthesia: MAC Surgeon: Homero Salamanca Pathology: other (Antrum) Condition: stable Disposition: PACU Description of Procedure: Patient's placed on the endoscopy table in the lateral position. She received IV sedation. The gastroscope placed oropharynx past esophagus into the stomach. Scope was placed through the pylorus. The first and second portion of the duodenum appeared normal. Scope was brought back the antrum and this appeared mildly inflamed. A biopsies performed. Scope was unretroflexed and remainder of the stomach appeared normal. The GE junction was at 40 cm. The distal esophagus appeared normal. The proximal esophagus appeared normal. Scope withdrawn for patient.
[2021-06-03 10:47] VITALS: BP 120/75; PULSE 70; RESP 14
== END 2021-06-03 11:09 | disposition home or self-care (01) ==
LOC: ORWHC2ENDO 08:54
PROVIDERS: ATTEND Surgery
DX: K29.50 Unspecified chronic gastritis without bleeding (principal); K21.9 Gastro-esophageal reflux disease without esophagitis; N92.0 Excessive and frequent menstruation with regular cycle; E66.01 Morbid (severe) obesity due to excess calories; Z68.42 Body mass index [BMI] 45.0-49.9, adult; F41.9 Anxiety disorder, unspecified; Z98.891 History of uterine scar from previous surgery; Z90.49 Acquired absence of other specified parts of digestive tract; Z98.51 Tubal ligation status; Z98.890 Other specified postprocedural states; Z87.891 Personal history of nicotine dependence; Z83.3 Family history of diabetes mellitus; Z82.49 Family history of ischemic heart disease and other diseases of the circulatory system; Z80.8 Family history of malignant neoplasm of other organs or systems; Z80.3 Family history of malignant neoplasm of breast; Z79.899 Other long term (current) drug therapy; Z79.84 Long term (current) use of oral hypoglycemic drugs; Z88.5 Allergy status to narcotic agent; Z88.0 Allergy status to penicillin; Z88.2 Allergy status to sulfonamides; Z88.1 Allergy status to other antibiotic agents
CPT/HCPCS: 81025; 88305; 43239; J2001; J2704

== ENCOUNTER → 2021-06-07 | Outpatient (CLI) | payer BC ==
[2021-06-07 16:07] VITALS: BP 146/78; PULSE 72; TEMP 98.2; BMI 47.4
--- NOTE | 2021-06-17 20:03 | P.HPBAR ---
Bariatric H&P - History & Physicial H&P Date: 06/07/21 History & Physicial: Visit/CC: presurgical visit egd follow up Patient initial contact: Initial weight: Initial weight in pounds: Height: 5 ft 5 in Initial BMI: Last weight: Current weight: 129.274 kg Current weight in pounds: 285.00 Current BMI: 47.4 [place] body weight (based on NIH guidelines): 56.699 kg Excess body weight loss: The patient is a 41 year-old F who presents for Bariatric Assessment. Patient presents today for presurgical consultation. She is morbidly obese. Her BMI is 47. She underwent recent EGD is found have mild gastritis. Past Medical History Past Medical History: Osteoarthritis (OA) Additional Past Medical History / Comment(s): on metformin for weight loss. heavy menstrual bleeding History of Any Multi-Drug Resistant Organisms: None Reported Past Surgical History: Section, Cholecystectomy, Tonsillectomy, Tubal Ligation, Uterine Ablation Additional Past Surgical History / Comment(s): LIPOMA REMOVED FROM RT THIGH Past Anesthesia/Blood Transfusion Reactions: Family History of Problems w/ Anesthesia, Postoperative Nausea & Vomiting (PONV) Additional Past Anesthesia/Blood Transfusion Reaction / Comm: FAMILY HISTORY OF PONV Past Psychological History: Anxiety Smoking Status: Former smoker Past Alcohol Use History: Occasional Additional Past Alcohol Use History / Comment(s): QUIT SMOKING 2003 Past Drug Use History: None Reported - Past Family History Father Family Medical History: Cancer, Diabetes Mellitus, Hypertension Additional Family Medical History / Comment(s): skin cancer Mother Family Medical History: Cancer Additional Family Medical History / Comment(s): breast cancer Surgical - Exam Vital Signs Temp Pulse BP 98.2 F 72 146/78 06/07/21 16:03 06/07/21 16:03 06/07/21 16:03 - General well developed, well nourished, no distress - Eyes PERRL - ENT normal pinna - Neck no masses - Respiratory normal expansion - Cardiovascular Rhythm: regular - Abdomen Abdomen: soft, non tender Bariatric Assessment & Plan Plan: Morbid obesity. Patient be scheduled for sleeve gastrectomy 1 insurance authorization requirements have been met. Bariatric Checklist Checklist: Plan: Checklist: EGD: 1. Hiatal hernia: 2. H. Pylori: HgbA1c: Vitamin D: Smoking: Never smoker Primary care physician referral: Dr. Dumont Psychiatry clearance: Cardiology clearance: Sleep study: Diet journal: VTE risk score: VTE risk level: Rehab needs at discharge:
== END | disposition home or self-care (01) ==
LOC: BARWHC3 13:20
PROVIDERS: ATTEND Surgery
DX: E66.01 Morbid (severe) obesity due to excess calories (principal); Z68.42 Body mass index [BMI] 45.0-49.9, adult
CPT/HCPCS: 99211

== ENCOUNTER → 2021-06-11 | Outpatient (CLI) | payer BC ==
[2021-06-11 13:51] LABS: Basophils # (A) 0.1 k/uL (0-0.2); Basophils % (A) 1 %; Eosinophils # (A) 0.1 k/uL (0-0.7); Eosinophils % (A) 2 %; HCT 43.3 % (34.0-46.0); HGB 14.4 gm/dL (11.4-16.0); Lymphocytes # (A) 1.6 k/uL (1.0-4.8); Lymphocytes % (A) 20 %; MCH 29.9 pg (25.0-35.0); MCHC 33.3 g/dL (31.0-37.0); MCV 89.9 fL (80.0-100.0); Mean Platelet Volume 7.8; Monocytes # (A) 0.3 k/uL (0-1.0); Monocytes % (A) 4 %; Neutrophils # (A) 5.7 k/uL (1.3-7.7); Neutrophils % (A) 72 %; Platelet Count 274 k/uL (150-450); RBC 4.82 m/uL (3.80-5.40); RDW 13.2 % (11.5-15.5); WBC 7.8 k/uL (3.8-10.6)
[2021-06-11 14:08] LABS: ALT 19 U/L (4-34); AST 24 U/L (14-36); African American GFR (CKD) >90 (>60 ml/min/1.73 sqM); Albumin 4.1 g/dL (3.5-5.0); Alkaline Phosphatase 84 U/L (38-126); Anion Gap 9 mmol/L; Blood Urea Nitrogen 21 mg/dL (7-17); Calcium 9.7 mg/dL (8.4-10.2); Carbon Dioxide 25 mmol/L (22-30); Chloride 102 mmol/L (98-107); Glucose 98 mg/dL (74-99); Non-African American GFR(CKD) >90 (>60 ml/min/1.73 sqM); Potassium 4.3 mmol/L (3.5-5.1); Sodium 136 mmol/L (137-145); Total Bilirubin 0.3 mg/dL (0.2-1.3)
== END | disposition home or self-care (01) ==
LOC: LABPAT 13:12
PROVIDERS: ATTEND Surgery
DX: Z01.812 Encounter for preprocedural laboratory examination (principal)
CPT/HCPCS: 36415; 80053; 85025

== ENCOUNTER 2021-06-22 07:37 | Inpatient (IN) | payer BC ==
[~2021-06-22 07:37] MED LIST changes: +DEXAMETHASONE SOD PHOSPHATE 4 MG/ML 1 ML VIAL IV ONE; +ENOXAPARIN 40 MG/0.4 ML SYRINGE SQ PRN; -LACTATED RINGERS 1,000 ML IV SCH; +MIDAZOLAM 2 MG/2 ML VIAL IV PRN; +ONDANSETRON 4 MG/2 ML VIAL IVP ONE
[2021-06-22] MEDS: ceFAZolin 3 GM in SODIUM CHLORIDE 0.9% 100 ML IVPB PRN ×2 (08:21→09:55)
[2021-06-22] MEDS ORDERED: LACTATED RINGERS 1,000 ML IV ONE (08:21)
[2021-06-22] MEDS ORDERED: SCOPOLAMINE 1.5MG/72HR PATCH TRANSDERM ONE (08:22)
--- NOTE | 2021-06-22 09:34 | P.GSHP ---
History of Present Illness H&P Date: 06/22/21 Chief Complaint: Morbid obesity This a 41-year-old female who presents today for sleeve gastrectomy. She's had lifetime problems obesity. Patient understands the risks of surgery including gastric perforation, stable and bleeding and scarring. Past Medical History Past Medical History: Osteoarthritis (OA) Additional Past Medical History / Comment(s): heavy menstrual bleeding History of Any Multi-Drug Resistant Organisms: None Reported Past Surgical History: Section, Cholecystectomy, Tonsillectomy, Tubal Ligation, Uterine Ablation Additional Past Surgical History / Comment(s): LIPOMA REMOVED FROM RT THIGH Past Anesthesia/Blood Transfusion Reactions: Family History of Problems w/ Anesthesia, Postoperative Nausea & Vomiting (PONV) Additional Past Anesthesia/Blood Transfusion Reaction / Comment(s): FAMILY HISTORY OF PONV Smoking Status: Former smoker - Past Family History Father Family Medical History: Cancer, Diabetes Mellitus, Hypertension Additional Family Medical History / Comment(s): skin cancer Mother Family Medical History: Cancer Additional Family Medical History / Comment(s): breast cancer Medications and Allergies Home Medications Medication Instructions Recorded Confirmed Type FLUoxetine HCL [PROzac] 40 mg PO DAILY 02/20/20 06/22/21 History Allergies Allergy/AdvReac Type Severity Reaction Status Date / Time erythromycin base Allergy Rash/Hives Verified 06/22/21 08:20 [Erythromycin Base] Penicillins Allergy Rash/Hives Verified 06/22/21 08:20 Sulfa (Sulfonamide Allergy Rash/Hives Verified 06/22/21 08:20 Antibiotics) codeine phosphate AdvReac Vomiting Verified 06/22/21 08:20 [From Tylenol-Codeine #3] Surgical - Exam Vital Signs Temp Pulse Resp BP Pulse Ox 97.8 F 67 16 133/60 100 06/22/21 08:18 06/22/21 08:18 06/22/21 08:18 06/22/21 08:18 06/22/21 08:18 - General well developed - Eyes PERRL - ENT normal pinna - Neck no masses - Respiratory normal expansion - Cardiovascular Rhythm: regular - Abdomen Abdomen: soft, non tender Assessment and Plan Assessment: Morbid obesity. We'll perform laparoscopic sleeve gastrectomy
[2021-06-22] MEDS ORDERED: SUCCINYLCHOLINE CHLORIDE 100 MG/5 ML SYR IV ONE (09:49)
[2021-06-22] MEDS ORDERED: NEOSTIGMINE 1 MG/ML 10 ML VIAL ONE (09:49)
[2021-06-22] MEDS ORDERED: KETAMINE 10 MG/ML 20 ML VIAL ONE (09:49)
[2021-06-22] MEDS ORDERED: GLYCOPYRROLATE 0.2 MG/ML 2 ML VIAL ONE (09:49)
[2021-06-22] MEDS ORDERED: KETOROLAC 15 MG/ML 1 ML VIAL ONE (09:49)
[2021-06-22] MEDS ORDERED: LIDOCAINE 1% INJ 10MG/ML (20 ML MDV) ONE (09:49)
[2021-06-22] MEDS ORDERED: ROCURONIUM 10 MG/ML (5 ML VIAL) IV ONE (09:49)
[2021-06-22] MEDS ORDERED: MIDAZOLAM 2 MG/2 ML VIAL ONE (09:49)
[2021-06-22] MEDS ORDERED: diphenhydrAMINE 50 MG/ML 1 ML VIAL ONE (09:49)
[2021-06-22] MEDS ORDERED: PROPOFOL 10 MG/ML 20 ML VIAL IV ONE (09:49)
[2021-06-22] MEDS ORDERED: fentaNYL (PF) 50 MCG/ML 2 ML AMP ONE (09:49)
[2021-06-22] MEDS ORDERED: PHENYLEPHRINE-0.9% NACL SYG 1,000 MCG/10 ML SYRINGE ONE (09:49)
[2021-06-22] MEDS ORDERED: BUPIVACAIN-EPI 0.25%-1:200,000 30 ML VIAL SQ ONE (10:28)
--- NOTE | 2021-06-22 11:25 | P.OP ---
Date of Procedure: 06/22/21 Preoperative Diagnosis: Morbid obesity, BMI 46 Postoperative Diagnosis: Morbid obesity, BMI 36 Procedure(s) Performed: Laparoscopic sleeve gastrectomy Anesthesia: ELMER Surgeon: Homero Salamanca Estimated Blood Loss (ml): 5 Pathology: other (Stomach) Condition: stable Disposition: PACU Description of Procedure: The patient was placed on the operating room table in the supine position. She received general anesthesia and then was placed in dorsal lithotomy position. Her abdomen was prepped and draped in sterile fashion. The skin incision sites were anesthetized 1% local Xylocaine. And then the skin was incised with an 11 blade in the left lateral position. Using a blade less trocar under direct visualization the peritoneal cavity was entered. The abdomen was insufflated and then a 5 mm laparoscope was placed into the peritoneal cavity. A 5 mm trocar was placed in the right epigastric, and right lateral position. A 15 mm trocar was placed in the supra-umbilical position and another 5 mm trocar was placed in the left lateral position. The left lateral lobe of the liver was retracted. The stomach was visualized. The greater curvature of the stomach was then dissected using the Harmonic scissors. The dissection occurred approximately 5 cm from the pylorus to the level of the left kathie. There was no hiatal hernia seen. At this point a 40-Russian bougie dilator was placed the oropharynx and passed into the esophagus and into the stomach by the [employer]. The sleeve gastrectomy was performed by using the powered echelon stapler with a seam guard buttress material. Sequential firings of the stapler were performed. The gastric remnant was then brought out through the 15 mm trocar site. The dilator was withdrawn. And a orogastric tube was replaced into the stomach. The stomach was insufflated with 200 mL of methylene blue normal saline. There was no evidence of extravasation. The abdomen was irrigated there is no bleeding seen. The Larry-Neo device was used to close the 15 mm trocar with 0 Vicryl. Skin was closed with interrupted 3-0 Monocryl sutures once the trochars withdrawn. Dermabond dressing was applied. Patient was sent to recovery in stable condition.
[2021-06-22] MEDS ORDERED: ONDANSETRON 4 MG/2 ML VIAL IVP PRN (11:26)
[2021-06-22] MEDS ORDERED: SIMETHICONE 40 MG/0.6 ML DROPS 2,000 MG/30 ML BOTTLE PO PRN (11:26)
[2021-06-22] MEDS ORDERED: NALOXONE 0.4 MG/ML 1 ML VIAL IV PRN (11:26)
[2021-06-22] MEDS ORDERED: HYDROcodone/APAP 15 ML SOLUTION PO PRN (11:26)
[2021-06-22] MEDS ORDERED: diphenhydrAMINE 50 MG/ML 1 ML VIAL IVP PRN (11:26)
[2021-06-22] MEDS: HYDROmorphone 0.5 MG/0.5 ML SYRINGE IVP PRN ×2 (12:17→13:25)
[2021-06-22] MEDS: LACTATED RINGERS 1,000 ML IV SCH (12:22)
[2021-06-22] MEDS ORDERED: ONDANSETRON 4 MG/2 ML VIAL IVP ONE (13:20)
[2021-06-22] MEDS: 0.9% NACL WITH KCL 20 MEQ/L 1,000 ML IV SCH ×2 (15:33→22:33)
[2021-06-22] MEDS: ALBUTEROL NEBULIZED 2.5 MG/3 ML INHALATION SCH ×2 (16:39→19:04)
[2021-06-22] MEDS: HYDROmorphone 1 MG/ML 1 ML SYRINGE IVP PRN ×2 (16:43→21:19)
[2021-06-22] MEDS: KETOROLAC 30 MG/ML 1 ML VIAL IVP SCH (17:45)
[2021-06-22] MEDS ORDERED: KETOROLAC 15 MG/ML 1 ML VIAL IVP SCH (18:00)
[2021-06-23] MEDS: KETOROLAC 30 MG/ML 1 ML VIAL IVP SCH ×5 (00:50→23:59)
[2021-06-23] MEDS: HYDROmorphone 1 MG/ML 1 ML SYRINGE IVP PRN (01:18)
[2021-06-23] MEDS: 0.9% NACL WITH KCL 20 MEQ/L 1,000 ML IV SCH (05:25)
[2021-06-23] MEDS: HYOSCYAMINE ORAL DROPS 1.875 MG/15 ML BOTTLE PO PRN ×2 (06:00→17:08)
[2021-06-23] MEDS: ALBUTEROL NEBULIZED 2.5 MG/3 ML INHALATION SCH ×4 (08:06→18:51)
[2021-06-23] MEDS: 1: THIAMINE 100 MG, FOLIC ACID 1 MG in 0.9% NACL WITH KCL 20 MEQ/L 1,000 ML 2: 0.9% NAC IVP SCH ×2 (08:20→20:32)
[2021-06-23] MEDS: PANTOPRAZOLE 40 MG/10 ML VIAL IV SCH (08:21)
[2021-06-23] MEDS: MULTIVITAMINS, THERA LIQUID 237 ML BOTTLE PO SCH (08:21)
[2021-06-23] MEDS: ENOXAPARIN 40 MG/0.4 ML SYRINGE SQ SCH (08:22)
[2021-06-23 09:47] LABS: African American GFR (CKD) 125.6 (60.0-200.0); Anion Gap 10.1 mmol/L (4.00-12.00); Calcium 8.2 mg/dL (8.7-10.3); Carbon Dioxide 21.9 mmol/L (21.6-31.8); Non-African American GFR(CKD) 108.4 (60.0-200.0); Phosphorus 2.2 mg/dL (2.4-5.1); Potassium 4.7 mmol/L (3.5-5.5)
[2021-06-23 09:51] LABS: Basophils # (A) 0.02 X 10*3/uL (0.00-0.10); Basophils % (A) 0.3 %; Eosinophils # (A) 0.02 X 10*3/uL (0.04-0.35); Eosinophils % (A) 0.3 %; HCT 39.7 % (37.2-46.3); HGB 12.1 g/dL (12.0-15.0); Lymphocytes # (A) 1.33 X 10*3/uL (0.90-5.00); Lymphocytes % (A) 16.9 %; MCH 28.9 pg (27.0-32.0); MCHC 30.5 g/dL (32.0-37.0); Mean Platelet Volume 11.8 fL (9.5-12.2); Monocytes # (A) 0.54 X 10*3/uL (0.20-1.00); Monocytes % (A) 6.9 %; Neutrophils # (A) 5.93 X 10*3/uL (1.80-7.70); Neutrophils % (A) 75.3 %; Platelet Count 203 X 10*3/uL (140-440); RBC 4.18 X 10*6/uL (4.10-5.20); RDW 13.4 % (11.5-14.5); WBC 7.86 X 10*3/uL (4.50-10.00)
[2021-06-23 10:35] VITALS: BMI 46.4
[2021-06-23] MEDS: LACTATED RINGERS 1,000 ML IV SCH (11:06)
--- NOTE | 2021-06-23 11:33 | P.CONS ---
History of Present Illness - History of Present Illness This is a pleasant 41 years old female with past medical history of osteoart hritis, heavy menstrual bleeding. Obesity. She is a status post laparoscopic sleeve gastrectomy. For her morbid obesity with BMI of 46. Today is postop day #1. Condition lying in bed comfortable with no distress, no abdominal pain. She still nothing by mouth with ice chips. No bowel movement and no significant abdominal tenderness. No other complaints like no chest pain, no dyspnea, Vitals and labs reviewed and they looks stable including unremarkable CBC and BMP. A coronavirus not detected. Review of Systems CONSTITUTIONAL: No fever, no malaise, no fatigue. HEENT: No recent visual problems or hearing problems. Denied any sore throat. CARDIOVASCULAR: No orthopnea, PND, no palpitations, no syncope. PULMONARY: No shortness of breath, no cough, no hemoptysis. GASTROINTESTINAL: No diarrhea, no nausea, no vomiting, no abdominal pain. Normoactive bowel sounds. NEUROLOGICAL: No headaches, no weakness, no numbness. HEMATOLOGICAL: Denies any bleeding or petechiae. GENITOURINARY: Denies any burning micturition, frequency, or urgency. MUSCULOSKELETAL/RHEUMATOLOGICAL: Denies any joint pain, swelling, or any muscle pain. ENDOCRINE: Denies any polyuria or polydipsia. Past Medical History Past Medical History: Osteoarthritis (OA) Additional Past Medical History / Comment(s): heavy menstrual bleeding History of Any Multi-Drug Resistant Organisms: None Reported Past Surgical History: Section, Cholecystectomy, Tonsillectomy, Tubal Ligation, Uterine Ablation Additional Past Surgical History / Comment(s): LIPOMA REMOVED FROM RT THIGH Past Anesthesia/Blood Transfusion Reactions: Family History of Problems w/ Anesthesia, Postoperative Nausea & Vomiting (PONV) Additional Past Anesthesia/Blood Transfusion Reaction / Comm: FAMILY HISTORY OF PONV Past Psychological History: Anxiety Smoking Status: Former smoker Past Alcohol Use History: Occasional Additional Past Alcohol Use History / Comment(s): QUIT SMOKING 2003 Past Drug Use History: None Reported - Past Family History Father Family Medical History: Cancer, Diabetes Mellitus, Hypertension Additional Family Medical History / Comment(s): skin cancer Mother Family Medical History: Cancer Additional Family Medical History / Comment(s): breast cancer Medications and Allergies Home Medications Medication Instructions Recorded Confirmed Type FLUoxetine HCL [PROzac] 40 mg PO DAILY 02/20/20 06/22/21 History Allergies Allergy/AdvReac Type Severity Reaction Status Date / Time erythromycin base Allergy Rash/Hives Verified 06/22/21 08:20 [Erythromycin Base] Penicillins Allergy Rash/Hives Verified 06/22/21 08:20 Sulfa (Sulfonamide Allergy Rash/Hives Verified 06/22/21 08:20 Antibiotics) codeine phosphate AdvReac Vomiting Verified 06/22/21 08:20 [From Tylenol-Codeine #3] Physical Exam Vitals: Vital Signs Temp Pulse Pulse Resp BP Pulse Ox 06/23/21 11:20 18 06/23/21 08:18 88 06/23/21 08:07 85 95 06/23/21 08:00 97.6 F 86 16 134/75 94 L 06/23/21 01:15 97.8 F 76 152/91 95 06/22/21 20:45 65 18 06/22/21 19:40 97.6 F 86 152/84 97 06/22/21 14:30 98.2 F 65 18 163/89 93 L 06/22/21 13:30 84 16 159/92 99 06/22/21 13:00 76 16 147/50 98 06/22/21 12:45 69 16 147/90 96 06/22/21 12:30 62 16 148/84 96 06/22/21 12:15 61 16 147/80 96 06/22/21 12:00 63 16 150/82 97 06/22/21 11:45 65 16 151/81 97 06/22/21 11:30 70 16 147/77 97 Intake and Output 06/22/21 06/23/21 06/23/21 22:59 06:59 14:59 Output Total 500 Balance -500 Output: Urine 500 Other: Voiding Method Toilet Toilet # Voids 1 4 # Bowel Movements 0 Weight 126.55 kg -GENERAL: The patient is alert and oriented x3, not in any acute distress. Morbidly obese HEENT: Pupils are round and equally reacting to light. EOMI. No scleral icterus. No conjunctival pallor. Normocephalic, atraumatic. No pharyngeal erythema. No thyromegaly. CARDIOVASCULAR: S1 and S2 present. No murmurs, rubs, or gallops. PULMONARY: Chest is clear to auscultation, no wheezing or crackles. -ABDOMEN: Soft, nontender, nondistended, normoactive bowel sounds. No palpable organomegaly. Extremity wounds are healing MUSCULOSKELETAL: No joint swelling or deformity. EXTREMITIES: No cyanosis, clubbing, or pedal edema. NEUROLOGICAL: Gross neurological examination did not reveal any focal deficits. SKIN: No rashes. No petechiae Results CBC & Chem 7: 06/23/21 05:32 06/23/21 05:32 Labs: Abnormal Lab Results - Last 24 Hours (Table) 06/23/21 06/23/21 Range/Units 05:32 05:32 MCHC 30.5 L (32.0-37.0) g/dL Eosinophils # 0.02 L (0.04-0.35) X 10*3/uL BUN 7.0 L (9.0-27.0) mg/dL Calcium 8.2 L (8.7-10.3) mg/dL Phosphorus 2.2 L (2.4-5.1) mg/dL Assessment and Plan Assessment: Morbid obesity status post laparoscopic sleeve gastrectomy. History of MRSA arthritis History of heavy menstrual bleeding Plan: This is a pleasant 41 years old female status post sleeve gastrectomy Patient currently nothing by mouth until advance diet per surgery team Patient control Labs and medication were reviewed.. Continue same treatment. Continue with symptomatic treatment. Resume home medication. Monitor lytes and vitals. DVT and GI prophylaxis. Further recommendations depends on the clinical course of the patient DVT prophylaxis: Already on Subcutaneous Lovenox GI Prophylaxis: Ppi Ankle for consulting us, we'll follow up with you
--- NOTE | 2021-06-23 11:44 | FL ---
SINGLE CONTRAST UPPER GI EXAMINATION: CLINICAL HISTORY: 41-year-old female status post bariatric surgery, sleeve gastrectomy. TECHNIQUE: Single contrast exam performed with 25 ml Isovue-370 contrast. Total fluoroscopy time: 2 minutes 10 seconds. Total images: 20. FINDINGS: The patient swallowed oral contrast without difficulty or delay. Mild tertiary peristaltic waves are demonstrated. Otherwise, normal course and caliber of the thoracic esophagus. There is progressive accumulation of contrast in the lower esophagus. There is intermittent small rocio unt of passage of contrast into the proximal stomach and postsurgical changes demonstrated a similar gastrectomy with only a hairline stream of contrast extending throughout most of the body of the stom ach. There is progressive accumulation of contrast into the lower third of the esophagus with only a total of 25 mL oral contrast ingested. Recurrent episodes of intraesophageal reflux are present. After 15 minute delay, the appearance is similar. Contrast has not passed into the small bowel. No extravasation is identified to suggest leak assessment limited due to the very thin stream of cont rast along the sleeve. No postsurgical free air seen. IMPRESSION: 1. Moderate to severe obstruction at the level of the sleeve gastrectomy probably on the basis of pos toperative edema. This results in back up of contrast into the lower third esophagus after only 25 mL ingested. This finding persists even after a 15 minute wait. Patient will probably need a repeat exa m to ensure resolution of the obstruction. 2. With only the thin stream along the sleeve, no leak is identified.
--- NOTE | 2021-06-23 14:53 | P.PN ---
Subjective Progress Note Date: 06/23/21 CHIEF COMPLAINT: Morbid obesity HISTORY OF PRESENT ILLNESS: Status post laparoscopic sleeve gastrectomy. Postop day #1. Upper GI shows moderate to severe obstruction at the level of the sleeve gastrectomy probably on the basis of postoperative edema. This results in backup of contrast into the lower third esophagus after only 25 mL ingested. There is no evidence of leak. Patient denies any difficulty swallowing. She reports that her pain is controlled. She did have some mild nausea early this morning. Denies any flatus or BM. Afebrile. WBC 7.86 Hgb 12.1 PHYSICAL EXAM: VITAL SIGNS: Reviewed. GENERAL: Well-developed in no acute distress. HEENT: No sclera icterus. Extraocular movements grossly intact. Moist buccal mucosa. Head is atraumatic, normocephalic. ABDOMEN: Soft. Nondistended. Nontender. NEUROLOGIC: Alert and oriented. Cranial nerves II through XII grossly intact. ASSESSMENT: 1. Morbid obesity status post laparoscopic sleeve gastrectomy 2. Moderate to severe obstruction at the level of the sleeve gastrectomy likely due to postoperative edema PLAN: -Start IV Decadron 4 mg IV every 6 hours to help with postoperative edema -Continue bariatric clear liquid diet -Continue pain medication as needed -Continue IV fluids -Encourage patient to ambulate -Possible discharge home tomorrow Physician Barge Pilot note has been reviewed by physician. Signing provider agrees with the documented findings, assessment, and plan of care. Objective - Vital Signs Vital signs: Vital Signs Temp 97.6 F 06/23/21 08:00 Pulse 76 06/23/21 14:36 Resp 18 06/23/21 11:20 BP 134/75 06/23/21 08:00 Pulse Ox 95 06/23/21 08:07 Intake & Output 06/22/21 06/23/21 06/23/21 18:59 06:59 18:59 Intake Total 1600 Output Total 255 250 Balance 1345 -250 Weight 126.55 kg 126.55 kg Intake: IV 1600 Output: Urine 250 250 Estimated Blood Loss 5 Other: Voiding Method Toilet Toilet # Voids 4 # Bowel Movements 0 - Labs CBC & Chem 7: 06/23/21 05:32 06/23/21 05:32 Labs: Abnormal Lab Results - Last 24 Hours (Table) 06/23/21 06/23/21 Range/Units 05:32 05:32 MCHC 30.5 L (32.0-37.0) g/dL Eosinophils # 0.02 L (0.04-0.35) X 10*3/uL BUN 7.0 L (9.0-27.0) mg/dL Calcium 8.2 L (8.7-10.3) mg/dL Phosphorus 2.2 L (2.4-5.1) mg/dL
[2021-06-23 15:46] VITALS: RESP 16
[2021-06-23] MEDS: DEXAMETHASONE SOD PHOSPHATE 4 MG/ML 1 ML VIAL IVP SCH ×2 (17:07→20:30)
[2021-06-24] MEDS: HYDROmorphone 1 MG/ML 1 ML SYRINGE IVP PRN (00:03)
[2021-06-24] MEDS: DEXAMETHASONE SOD PHOSPHATE 4 MG/ML 1 ML VIAL IVP SCH ×2 (02:35→07:35)
[2021-06-24] MEDS: KETOROLAC 30 MG/ML 1 ML VIAL IVP SCH ×2 (05:38→12:12)
[2021-06-24] MEDS: 1: THIAMINE 100 MG, FOLIC ACID 1 MG in 0.9% NACL WITH KCL 20 MEQ/L 1,000 ML 2: 0.9% NAC IVP SCH ×3 (05:40→13:35)
[2021-06-24] MEDS: ALBUTEROL NEBULIZED 2.5 MG/3 ML INHALATION SCH ×2 (07:26→10:59)
[2021-06-24] MEDS: ENOXAPARIN 40 MG/0.4 ML SYRINGE SQ SCH (07:35)
[2021-06-24] MEDS: PANTOPRAZOLE 40 MG/10 ML VIAL IV SCH (07:35)
[2021-06-24] MEDS: MULTIVITAMINS, THERA LIQUID 237 ML BOTTLE PO SCH (07:35)
--- NOTE | 2021-06-24 11:10 | P.PN ---
Subjective This is a pleasant 41 years old female with past medical history of osteoarthritis, heavy menstrual bleeding. Obesity. She is a status post laparoscopic sleeve gastrectomy. For her morbid obesity with BMI of 46. Today is postop day #1. Condition lying in bed comfortable with no distress, no abdominal pain. She still nothing by mouth with ice chips. No bowel movement and no significant abdominal tenderness. No other complaints like no chest pain, no dyspnea, Vitals and labs reviewed and they looks stable including unremarkable CBC and BMP. A coronavirus not detected. 06/24/2021 Patient today was then stop on walking in the room with no difficulty. She is tolerating her liquid diet with no problems. Vomiting. No abdominal pain. No diarrhea. Vital signs stable. No labs from today. She is on dexamethasone per surgery team. Patient was instructed to follow up with PCP Dr. Dumont in 1 week after discharge and she agrees to call and make appointment Objective - Vital Signs Vital signs: Vital Signs Temp 98.1 F 06/24/21 08:00 Pulse 80 06/24/21 10:59 Resp 16 06/24/21 08:00 BP 130/73 06/24/21 08:00 Pulse Ox 97 06/24/21 08:00 Intake & Output 06/23/21 06/24/21 06/24/21 18:59 06:59 18:59 Weight 126.55 kg Other: Voiding Method Toilet Toilet # Voids 2 2 # Bowel Movements 0 - Exam -GENERAL: The patient is alert and oriented x3, not in any acute distress. Obese HEENT: Pupils are round and equally reacting to light. EOMI. No scleral icterus. No conjunctival pallor. Normocephalic, atraumatic. No pharyngeal erythema. No thyromegaly. CARDIOVASCULAR: S1 and S2 present. No murmurs, rubs, or gallops. PULMONARY: Chest is clear to auscultation, no wheezing or crackles. ABDOMEN: Soft, nontender, nondistended, normoactive bowel sounds. No palpable organomegaly. MUSCULOSKELETAL: No joint swelling or deformity. EXTREMITIES: No cyanosis, clubbing, or pedal edema. NEUROLOGICAL: Gross neurological examination did not reveal any focal deficits. SKIN: No rashes. no petechiae. - Labs CBC & Chem 7: 06/23/21 05:32 06/23/21 05:32 Assessment and Plan Assessment: Morbid obesity status post laparoscopic sleeve gastrectomy. History of MRSA arthritis History of heavy menstrual bleeding Plan: This is a pleasant 41 years old female status post sleeve gastrectomy Patient currently nothing by mouth until advance diet per surgery team Patient control Labs and medication were reviewed.. Continue same treatment. Continue with symptomatic treatment. Resume home medication. Monitor lytes and vitals. DVT and GI prophylaxis. Further recommendations depends on the clinical course of the patient DVT prophylaxis: Already on Subcutaneous Lovenox GI Prophylaxis: Ppi Ankle for consulting us, we'll follow up with you
[2021-06-24] MEDS: LACTATED RINGERS 1,000 ML IV SCH (12:03)
--- NOTE | 2021-06-24 13:15 | P.DS ---
Providers Date of admission: 06/22/21 07:37 Expected date of discharge: 06/24/21 Attending physician: Homero Salamanca Consults: 06/22/21 11:26 Consult Physician Routine Consulting Provider: Rosa Elena Wilson Consult Reason/Comments: Medical management Do you want consulting provider notified?: Yes Primary care physician: Gilbert Tim [place] Hospital Course: Discharge diagnosis 1. Morbid obesity status post laparoscopic sleeve gastrectomy 2. Moderate to severe obstruction at the level of the sleeve gastrectomy likely due to postoperative edema Hospital course This is a 41-year-old female known history of morbid obesity. She is status post laparoscopic sleeve gastrectomy. Upper GI had shown evidence of moderate to severe obstruction at the level of the sleeve gastrectomy likely due to postoperative edema. Patient was treated with IV Decadron. Patient denies any difficulty with swallowing. She is tolerating her bariatric clear liquid diet. She denies any nausea or vomiting. Her pain is controlled. She is up and ambulating. She is having bowel movements and flatus. She denies any difficulty urinating. She's afebrile. She is stable for discharge. Please refer to chart for any further details. [employer] note has been reviewed by physician. Signing provider agrees with the documented findings, assessment, and plan of care. Patient Condition at Discharge: Stable Plan - Discharge Summary Discharge Rx Participant: Yes New Discharge Prescriptions: New bisacodyL [Dulcolax] 5 mg PO DAILY PRN #10 tab PRN Reason: Constipation Omeprazole [PriLOSEC] 40 mg PO DAILY #30 cap traMADol HCL [Ultram] 50 mg PO Q6HR PRN 2 Days #5 tab PRN Reason: Pain Simethicone 40 mg/0.6 ml Drops [Mylicon Drops] 40 mg PO PCHS PRN #30 ml PRN Reason: Gas Acetaminophen Tab [Tylenol Tab] 650 mg PO Q4H PRN #30 tablet PRN Reason: Pain Ondansetron Odt [Zofran Odt] 4 mg PO Q8HR PRN #9 tab PRN Reason: Nausea Continue FLUoxetine HCL [PROzac] 40 mg PO DAILY Discharge Medication List FLUoxetine HCL [PROzac] 40 mg PO DAILY 02/20/20 [History] Acetaminophen Tab [Tylenol Tab] 650 mg PO Q4H PRN #30 tablet 06/24/21 [Rx] Omeprazole [PriLOSEC] 40 mg PO DAILY #30 cap 06/24/21 [Rx] Ondansetron Odt [Zofran Odt] 4 mg PO Q8HR PRN #9 tab 06/24/21 [Rx] Simethicone 40 mg/0.6 ml Drops [Mylicon Drops] 40 mg PO PCHS PRN #30 ml 06/24/21 [Rx] bisacodyL [Dulcolax] 5 mg PO DAILY PRN #10 tab 06/24/21 [Rx] traMADol HCL [Ultram] 50 mg PO Q6HR PRN 2 Days #5 tab 06/24/21 [Rx] Follow up Appointment(s)/Referral(s): Gilbert Dumont DO [Primary Care Provider] - 1 Week [place], [place] [NON-STAFF] - 1 Week Patient Instructions/Handouts: Scopolamine (Absorbed through the skin) Activity/Diet/Wound Care/Special Instructions: No lifting over 10 pounds You may shower. No soaking or tub baths for 2 weeks Very light activity until you are reevaluated at your follow up appointment with your surgeon No straws or carbonated beverages Discharge Disposition: HOME SELF-CARE
[2021-06-24 14:15] VITALS: BP 157/82; PULSE 62; TEMP 98
== END 2021-06-24 15:03 | disposition home or self-care (01) | DRG 621 ==
LOC: 2ORMAIN 07:37 → 4SSUR 14:16
PROVIDERS: ADMIT Surgery; ATTEND Surgery
PROC: 0DB64Z3 Excision of Stomach, Percutaneous Endoscopic Approach, Vertical (ICD-10-PCS; principal; 2021-06-22 08:55)
DX: E66.01 Morbid (severe) obesity due to excess calories (principal); F41.9 Anxiety disorder, unspecified; Z68.42 Body mass index [BMI] 45.0-49.9, adult; Z20.822 Contact with and (suspected) exposure to COVID-19; M19.90 Unspecified osteoarthritis, unspecified site; Z79.899 Other long term (current) drug therapy; Z90.49 Acquired absence of other specified parts of digestive tract; Z87.19 Personal history of other diseases of the digestive system; Z90.89 Acquired absence of other organs; Z98.51 Tubal ligation status; Z87.2 Personal history of diseases of the skin and subcutaneous tissue; Z86.14 Personal history of Methicillin resistant Staphylococcus aureus infection; Z87.891 Personal history of nicotine dependence; Z98.891 History of uterine scar from previous surgery; Z87.42 Personal history of other diseases of the female genital tract; Z98.890 Other specified postprocedural states; Z88.1 Allergy status to other antibiotic agents; Z71.3 Dietary counseling and surveillance; Z88.5 Allergy status to narcotic agent; Z88.0 Allergy status to penicillin; Z88.2 Allergy status to sulfonamides; Z80.8 Family history of malignant neoplasm of other organs or systems; Z83.3 Family history of diabetes mellitus; Z82.49 Family history of ischemic heart disease and other diseases of the circulatory system; Z80.3 Family history of malignant neoplasm of breast
CPT/HCPCS: 74240; 80051; 81025; 82310; 82565; 83735; 84100; 84520; 85025; 87635; 88307; 94640

== ENCOUNTER → 2021-06-28 | Outpatient (CLI) | payer BC ==
[2021-06-28 13:24] VITALS: BP 125/84; PULSE 76; RESP 18; TEMP 97.2; BMI 44.7
== END | disposition home or self-care (01) ==
LOC: BARWHC3 12:49
PROVIDERS: ATTEND Surgery
DX: E66.01 Morbid (severe) obesity due to excess calories (principal); Z68.41 Body mass index [BMI] 40.0-44.9, adult
CPT/HCPCS: 97803; 99211

== ENCOUNTER → 2021-07-12 | Outpatient (CLI) | payer BC ==
[2021-07-12 13:52] VITALS: BP 135/80; PULSE 85; TEMP 98.2; BMI 42.7
--- NOTE | 2021-07-12 15:51 | P.HPBAR ---
Bariatric H&P - History & Physicial H&P Date: 07/12/21 History & Physicial: Visit/CC: one week follow up Patient initial contact: Initial weight: Initial weight in pounds: Height: 5 ft 5 in Initial BMI: Last weight: Current weight: 116.573 kg Current weight in pounds: 257.00 Current BMI: 42.7 [place] body weight (based on NIH guidelines): 56.699 kg Excess body weight loss: The patient is a 41 year-old F who presents for Bariatric Assessment. Patient presents today for bariatric follow-up. She has some mild GERD. Past Medical History Past Medical History: Osteoarthritis (OA) Additional Past Medical History / Comment(s): on metformin for weight loss. heavy menstrual bleeding History of Any Multi-Drug Resistant Organisms: None Reported Past Surgical History: Bariatric Surgery, Section, Cholecystectomy, Tonsillectomy, Tubal Ligation, Uterine Ablation Additional Past Surgical History / Comment(s): LIPOMA REMOVED FROM RT THIGH. sleeve 06/22/21. Past Anesthesia/Blood Transfusion Reactions: Family History of Problems w/ Anesthesia, Postoperative Nausea & Vomiting (PONV) Additional Past Anesthesia/Blood Transfusion Reaction / Comm: FAMILY HISTORY OF PONV Smoking Status: Former smoker - Past Family History Father Family Medical History: Cancer, Diabetes Mellitus, Hypertension Additional Family Medical History / Comment(s): skin cancer Mother Family Medical History: Cancer Additional Family Medical History / Comment(s): breast cancer Surgical - Exam Vital Signs Temp Pulse BP 98.2 F 85 135/80 07/12/21 13:46 07/12/21 13:46 07/12/21 13:46 - General well developed, well nourished, no distress - Eyes PERRL - ENT normal pinna - Neck no masses - Respiratory normal expansion - Cardiovascular Rhythm: regular - Abdomen Abdomen: soft, non tender Bariatric Assessment & Plan Plan: Status post sleeve procedure. Patient is minimal observe. She'll follow-up in 4 weeks. Bariatric Checklist Checklist: Plan: Checklist: EGD: 1. Hiatal hernia: 2. H. Pylori: HgbA1c: Vitamin D: Smoking: Never smoker Primary care physician referral: Dr. Dumont Psychiatry clearance: Cardiology clearance: Sleep study: Diet journal: VTE risk score: VTE risk level: Rehab needs at discharge:
== END | disposition home or self-care (01) ==
LOC: BARWHC3 13:05
PROVIDERS: ATTEND Surgery
DX: K21.9 Gastro-esophageal reflux disease without esophagitis (principal)
CPT/HCPCS: 97803; 99211

== ENCOUNTER → 2021-07-28 | Outpatient (CLI) | payer BC ==
[2021-07-28 18:14] LABS: HCT 42.5 % (37.2-46.3); HGB 13.2 g/dL (12.0-15.0); MCH 28.8 pg (27.0-32.0); MCHC 31.1 g/dL (32.0-37.0); MCV 92.6 fL (80.0-97.0); Mean Platelet Volume 12.7 fL (9.5-12.2); Platelet Count 179 X 10*3/uL (140-440); RBC 4.59 X 10*6/uL (4.10-5.20); RDW 14.2 % (11.5-14.5); WBC 7.01 X 10*3/uL (4.50-10.00)
[2021-07-29 02:07] LABS: % Iron Saturation 21.56 (12.00-45.00); African American GFR (CKD) 116.5 (60.0-200.0); Albumin 4.4 g/dL (3.8-4.9); Albumin/Globulin Ratio 2.06 (1.60-3.17); Anion Gap 11.7 mmol/L (10.00-18.00); BUN/Creat Ratio 17.32 Ratio (12.00-20.00); Blood Urea Nitrogen 12.9 mg/dL (9.0-27.0); Calcium 9.4 mg/dL (8.7-10.3); Carbon Dioxide 24.1 mmol/L (20.0-27.5); Folate, Serum 13.9 ng/mL (4.40-31.00); Globulin 2.1 g/dL (1.6-3.3); Non-African American GFR(CKD) 100.5 (60.0-200.0); Potassium 3.9 mmol/L (3.5-5.5); Total Bilirubin 0.3 mg/dL (0.30-1.20); Total Protein 6.5 g/dL (6.2-8.2)
[2021-07-29 12:57] LABS: Zinc, Serum 83 ug/dL (60-130)
== END | disposition home or self-care (01) ==
LOC: LABWHC1 14:06
PROVIDERS: ATTEND Surgery
DX: D50.8 Other iron deficiency anemias (principal); E44.0 Moderate protein-calorie malnutrition; E55.9 Vitamin D deficiency, unspecified; T56.894A Toxic effect of other metals, undetermined, initial encounter
CPT/HCPCS: 36415; 80053; 82306; 82607; 82728; 82746; 83540; 83550; 83735; 84255; 84425; 84443; 84590; 84630; 85027

== ENCOUNTER → 2021-09-13 | Outpatient (CLI) | payer BC ==
[2021-09-13 14:34] VITALS: BP 115/74; PULSE 74; TEMP 98; BMI 38.4
== END | disposition home or self-care (01) ==
LOC: BARWHC3 14:01
PROVIDERS: ATTEND Surgery
DX: E66.01 Morbid (severe) obesity due to excess calories (principal); Z71.3 Dietary counseling and surveillance
CPT/HCPCS: 97803; 99211

== ENCOUNTER → 2021-11-29 | Outpatient (CLI) | payer BC ==
[2021-11-29 13:52] VITALS: BP 118/79; PULSE 72; RESP 16; TEMP 98.1; BMI 34.2
--- NOTE | 2021-11-29 15:39 | P.HPBAR ---
Bariatric H&P - History & Physicial H&P Date: 11/29/21 History & Physicial: Visit/CC: sleeve f/u Patient initial contact: Initial weight: Initial weight in pounds: Height: 5 ft 5 in Initial BMI: Last weight: Current weight: 93.44 kg Current weight in pounds: 206.00 Current BMI: 34.2 [place] body weight (based on NIH guidelines): 56.699 kg Excess body weight loss: The patient is a 41 year-old F who presents for Bariatric Assessment. Patient presents today for sleeve gastrectomy follow-up or she's had some mild GERD. She's doing quite well otherwise. Past Medical History Past Medical History: Osteoarthritis (OA) Additional Past Medical History / Comment(s): on metformin for weight loss. heavy menstrual bleeding History of Any Multi-Drug Resistant Organisms: None Reported Past Surgical History: Bariatric Surgery, Section, Cholecystectomy, Tonsillectomy, Tubal Ligation, Uterine Ablation Additional Past Surgical History / Comment(s): LIPOMA REMOVED FROM RT THIGH. sleeve 06/22/21. Past Anesthesia/Blood Transfusion Reactions: Family History of Problems w/ Anesthesia, Postoperative Nausea & Vomiting (PONV) Additional Past Anesthesia/Blood Transfusion Reaction / Comm: FAMILY HISTORY OF PONV Past Psychological History: Anxiety Smoking Status: Former smoker Past Alcohol Use History: Occasional Additional Past Alcohol Use History / Comment(s): QUIT SMOKING 2003 Past Drug Use History: None Reported - Past Family History Father Family Medical History: Cancer, Diabetes Mellitus, Hypertension Additional Family Medical History / Comment(s): skin cancer Mother Family Medical History: Cancer Additional Family Medical History / Comment(s): breast cancer Surgical - Exam Vital Signs Temp Pulse Resp BP 98.1 F 72 16 118/79 11/29/21 13:48 11/29/21 13:48 11/29/21 13:48 11/29/21 13:48 - General well developed, well nourished, no distress - Eyes PERRL - ENT normal pinna - Neck no masses, no bruits - Respiratory normal expansion - Cardiovascular Rhythm: regular - Abdomen Abdomen: soft, non tender Bariatric Assessment & Plan Plan: Status post sleeve gastrectomy. Patient is minimal and will be observed. She'll follow-up in 4 weeks. Bariatric Checklist Checklist: Plan: Checklist: EGD: 1. Hiatal hernia: 2. H. Pylori: HgbA1c: Vitamin D: Smoking: Never smoker Primary care physician referral: Dr. Dumont Psychiatry clearance: Cardiology clearance: Sleep study: Diet journal: VTE risk score: VTE risk level: Rehab needs at discharge:
== END | disposition home or self-care (01) ==
LOC: BARWHC3 13:25
PROVIDERS: ATTEND Surgery
DX: Z98.84 Bariatric surgery status (principal)
CPT/HCPCS: 99211

== ENCOUNTER → 2022-01-17 | Outpatient (CLI) | payer BC ==
[2022-01-17 13:32] VITALS: BP 117/75; PULSE 72; TEMP 98.5; BMI 33.3
--- NOTE | 2022-01-17 13:47 | P.HPBAR ---
Bariatric H&P - History & Physicial H&P Date: 01/17/22 History & Physicial: Visit/CC: sleeve f/u Patient initial contact: Initial weight: Initial weight in pounds: Height: 5 ft 5 in Initial BMI: Last weight: Current weight: 90.718 kg Current weight in pounds: 200.00 Current BMI: 33.3 [place] body weight (based on NIH guidelines): 56.699 kg Excess body weight loss: The patient is a 41 year-old F who presents for Bariatric Assessment. Patient resents today for sleeve gastrectomy fall. She's doing quite well. She has lost 6 pounds her last visit. She's had minimal GERD. Past Medical History Past Medical History: Osteoarthritis (OA) Additional Past Medical History / Comment(s): on metformin for weight loss. heavy menstrual bleeding History of Any Multi-Drug Resistant Organisms: None Reported Past Surgical History: Bariatric Surgery, Section, Cholecystectomy, Tonsillectomy, Tubal Ligation, Uterine Ablation Additional Past Surgical History / Comment(s): LIPOMA REMOVED FROM RT THIGH. sleeve 06/22/21. Past Anesthesia/Blood Transfusion Reactions: Family History of Problems w/ Anesthesia, Postoperative Nausea & Vomiting (PONV) Additional Past Anesthesia/Blood Transfusion Reaction / Comm: FAMILY HISTORY OF PONV Past Psychological History: Anxiety Smoking Status: Former smoker Past Alcohol Use History: Occasional Additional Past Alcohol Use History / Comment(s): QUIT SMOKING 2003 Past Drug Use History: None Reported - Past Family History Father Family Medical History: Cancer, Diabetes Mellitus, Hypertension Additional Family Medical History / Comment(s): skin cancer Mother Family Medical History: Cancer Additional Family Medical History / Comment(s): breast cancer Surgical - Exam Vital Signs Temp Pulse BP 98.5 F 72 117/75 01/17/22 13:30 01/17/22 13:30 01/17/22 13:30 - General well developed, well nourished, no distress - Eyes PERRL - ENT normal pinna - Neck no masses - Respiratory normal expansion - Cardiovascular Rhythm: regular - Abdomen Abdomen: soft, non tender Bariatric Assessment & Plan Plan: As for sleeve gastrectomy. Patient's GERD is minimal and will be observed. She'll follow-up in 4 weeks. Bariatric Checklist Checklist: Plan: Checklist: EGD: 1. Hiatal hernia: 2. H. Pylori: HgbA1c: Vitamin D: Smoking: Never smoker Primary care physician referral: Dr. Dumont Psychiatry clearance: Cardiology clearance: Sleep study: Diet journal: VTE risk score: VTE risk level: Rehab needs at discharge:
== END | disposition home or self-care (01) ==
LOC: BARWHC3 13:02
PROVIDERS: ATTEND Surgery
DX: Z48.815 Encounter for surgical aftercare following surgery on the digestive system (principal); K21.9 Gastro-esophageal reflux disease without esophagitis
CPT/HCPCS: 99211

== ENCOUNTER → 2022-01-19 | Outpatient (CLI) | payer BC ==
[2022-01-19 15:46] LABS: HCT 44.6 % (37.2-46.3); HGB 13.9 g/dL (12.0-15.0); MCH 29.3 pg (27.0-32.0); MCHC 31.2 g/dL (32.0-37.0); MCV 93.9 fL (80.0-97.0); Mean Platelet Volume 11.5 fL (9.5-12.2); NRBC Per 100 WBC 0 /100 WBCS (0.0-0.0); Platelet Count 218 X 10*3/uL (140-440); RBC 4.75 X 10*6/uL (4.10-5.20); RDW 13.6 % (11.5-14.5); WBC 8.84 X 10*3/uL (4.50-10.00)
[2022-01-19 17:15] LABS: ALT 12 U/L (8-44); AST 16 U/L (13-35); African American GFR (CKD) 126.5 (60.0-200.0); Albumin 4.4 g/dL (3.8-4.9); Albumin/Globulin Ratio 2.14 (1.60-3.17); Alkaline Phosphatase 72 U/L (41-126); BUN/Creat Ratio 26.72 Ratio (12.00-20.00); Blood Urea Nitrogen 18.3 mg/dL (9.0-27.0); Calcium 9.4 mg/dL (8.7-10.3); Carbon Dioxide 21.9 mmol/L (20.0-27.5); Chloride 106 mmol/L (96-109); Chol/HDL Ratio 4.02 Ratio; Ferritin 98.8 ng/mL (10.0-291.0); Globulin 2.1 g/dL (1.6-3.3); Glucose 79 mg/dL (70-110); Iron 92 ug/dL (50-170); LDL Cholesterol,Calculated 102.6 mg/dL (0.0-131.0); Non-African American GFR(CKD) 109.2 (60.0-200.0); Potassium 4.3 mmol/L (3.5-5.5); Sodium 140 mmol/L (135-145); Total Iron Binding Capacity 301 ug/dL (228-460); Total Protein 6.5 g/dL (6.2-8.2); VLDL Calculation 16.08 mg/dL (5.00-40.00)
[2022-01-20 13:27] LABS: Zinc, Serum 96 ug/dL (60-130)
== END | disposition home or self-care (01) ==
LOC: LABWHC1 09:35
PROVIDERS: ATTEND Surgery
DX: Z00.00 Encounter for general adult medical examination without abnormal findings (principal); E66.01 Morbid (severe) obesity due to excess calories; D50.8 Other iron deficiency anemias; E44.0 Moderate protein-calorie malnutrition; E55.9 Vitamin D deficiency, unspecified; T56.894A Toxic effect of other metals, undetermined, initial encounter
CPT/HCPCS: 36415; 80053; 80061; 82306; 82607; 82728; 82746; 83540; 83550; 83735; 84255; 84425; 84443; 84590; 84630; 85027

== ENCOUNTER → 2022-03-14 | Outpatient (CLI) | payer BC ==
[2022-03-14 13:06] VITALS: BP 108/75; PULSE 65; TEMP 98.2; BMI 32.4
--- NOTE | 2022-03-14 15:37 | P.HPBAR ---
Bariatric H&P - History & Physicial H&P Date: 03/14/22 History & Physicial: Visit/CC: 9 month f/u sleeve Patient initial contact: Initial weight: Initial weight in pounds: Height: 5 ft 5 in Initial BMI: Last weight: Current weight: 88.451 kg Current weight in pounds: 195.00 Current BMI: 32.4 [place] body weight (based on NIH guidelines): 56.699 kg Excess body weight loss: The patient is a 41 year-old F who presents for Bariatric Assessment. Patient resents today for sleeve gastric fall. She's had some mild GERD. She's loss another 5 pounds since her last visit. Past Medical History Past Medical History: Osteoarthritis (OA) Additional Past Medical History / Comment(s): on metformin for weight loss. heavy menstrual bleeding History of Any Multi-Drug Resistant Organisms: None Reported Past Surgical History: Bariatric Surgery, Section, Cholecystectomy, Tonsillectomy, Tubal Ligation, Uterine Ablation Additional Past Surgical History / Comment(s): LIPOMA REMOVED FROM RT THIGH. sleeve 06/22/21. Past Anesthesia/Blood Transfusion Reactions: Family History of Problems w/ Anesthesia, Postoperative Nausea & Vomiting (PONV) Additional Past Anesthesia/Blood Transfusion Reaction / Comm: FAMILY HISTORY OF PONV Past Psychological History: Anxiety Smoking Status: Former smoker Past Alcohol Use History: Occasional Additional Past Alcohol Use History / Comment(s): QUIT SMOKING 2003 Past Drug Use History: None Reported - Past Family History Father Family Medical History: Cancer, Diabetes Mellitus, Hypertension Additional Family Medical History / Comment(s): skin cancer Mother Family Medical History: Cancer Additional Family Medical History / Comment(s): breast cancer Surgical - Exam Vital Signs Temp Pulse BP 98.2 F 65 108/75 03/14/22 13:03 03/14/22 13:03 03/14/22 13:03 - General well developed, well nourished, no distress - Eyes PERRL - ENT normal pinna - Neck no masses - Respiratory normal expansion - Cardiovascular Rhythm: regular - Abdomen Abdomen: soft, non tender Bariatric Assessment & Plan Plan: Resolving morbid obesity. Patient's GERD is minimal and will be observed. She'll follow-up in 4 weeks. Bariatric Checklist Checklist: Plan: Checklist: EGD: 1. Hiatal hernia: 2. H. Pylori: HgbA1c: Vitamin D: Smoking: Never smoker Primary care physician referral: Dr. Dumont Psychiatry clearance: Cardiology clearance: Sleep study: Diet journal: VTE risk score: VTE risk level: Rehab needs at discharge:
== END | disposition home or self-care (01) ==
LOC: BARWHC3 12:45
PROVIDERS: ATTEND Surgery
DX: E66.01 Morbid (severe) obesity due to excess calories (principal); K21.9 Gastro-esophageal reflux disease without esophagitis; Z68.32 Body mass index [BMI] 32.0-32.9, adult
CPT/HCPCS: 99211

== ENCOUNTER → 2022-04-04 | Outpatient (CLI) | payer BC ==
--- NOTE | 2022-04-04 10:08 | MM ---
Reason for Exam: Screening (asymptomatic). Last screening mammogram was performed 12 month(s) ago. Patient History: Menarche at age 13. First Full-Term at age 31. Late child-bearing (after 31). Hormonal Contraceptives, starting at age 17 for 16 years. Mother had breast cancer, age 63. Last menstrual period: 03/20/2022 Risk Values: Emma 5 year model risk: 1.2%. NCI Lifetime model risk: 19.1%. Prior Study Comparison: 03/29/2007 Bilateral Diagnostic Mammogram, [facility]. 11/25/2014 Bilateral Screening Mammogram, [facility]. 04/01/2021 Bilateral Screening Mammogram, [facility]. Tissue Density: The breast tissue is almost entirely fat. Findings: Analyzed By CAD. There is no suspicious group of microcalcifications or new suspicious mass in either breast. Overall Assessment: Negative, BI-RAD 1 Management: Screening Mammogram of both breasts in 1 year. A clinical breast exam by your physician is recommended on an annual basis and results should be correlated with mammographic findings. Electronically signed and approved by: Braxton Jackson DO
== END | disposition home or self-care (01) ==
LOC: RADMAMWWP 09:17
PROVIDERS: ATTEND Obstetrics & Gynecology
DX: Z12.31 Encounter for screening mammogram for malignant neoplasm of breast (principal)
CPT/HCPCS: 77063; 77067

== ENCOUNTER → 2022-07-25 | Outpatient (CLI) | payer BC ==
[2022-07-25 13:47] VITALS: BP 116/77; PULSE 63; TEMP 97.9; BMI 32.8
--- NOTE | 2022-07-25 14:34 | P.HPBAR ---
Bariatric H&P - History & Physicial H&P Date: 07/25/22 History & Physicial: Visit/CC: 1 year sleeve F/U Patient initial contact: Initial weight: Initial weight in pounds: Height: 5 ft 5 in Initial BMI: Last weight: Current weight: 89.358 kg Current weight in pounds: 197.00 Current BMI: 32.8 [place] body weight (based on NIH guidelines): 56.699 kg Excess body weight loss: The patient is a 42 year-old F who presents for Bariatric Assessment. Patient presents today for gastric sleeve follow-up. She has some minimal GERD. She denies any significant dysphagia. Past Medical History Past Medical History: Osteoarthritis (OA) Additional Past Medical History / Comment(s): on metformin for weight loss. heavy menstrual bleeding History of Any Multi-Drug Resistant Organisms: None Reported Past Surgical History: Bariatric Surgery, Section, Cholecystectomy, Tonsillectomy, Tubal Ligation, Uterine Ablation Additional Past Surgical History / Comment(s): LIPOMA REMOVED FROM RT THIGH. sleeve 06/22/21. Past Anesthesia/Blood Transfusion Reactions: Family History of Problems w/ Anesthesia, Postoperative Nausea & Vomiting (PONV) Additional Past Anesthesia/Blood Transfusion Reaction / Comm: FAMILY HISTORY OF PONV Past Psychological History: Anxiety Smoking Status: Former smoker Past Alcohol Use History: Occasional Additional Past Alcohol Use History / Comment(s): QUIT SMOKING 2003 Past Drug Use History: None Reported - Past Family History Father Family Medical History: Cancer, Diabetes Mellitus, Hypertension Additional Family Medical History / Comment(s): skin cancer Mother Family Medical History: Cancer Additional Family Medical History / Comment(s): breast cancer Surgical - Exam Vital Signs Temp Pulse BP 97.9 F 63 116/77 07/25/22 13:44 07/25/22 13:44 07/25/22 13:44 - General well developed, well nourished, no distress - Eyes PERRL - ENT normal pinna - Neck no masses - Respiratory normal expansion - Abdomen Abdomen: soft, non tender Bariatric Assessment & Plan Plan: Status post sleeve gastric. Patient's GERD is minimal and will be observed. She'll follow-up in 4 weeks. Bariatric Checklist Checklist: Plan: Checklist: EGD: 1. Hiatal hernia: 2. H. Pylori: HgbA1c: Vitamin D: Smoking: Never smoker Primary care physician referral: Dr. Dumont Psychiatry clearance: Cardiology clearance: Sleep study: Diet journal: VTE risk score: VTE risk level: Rehab needs at discharge:
[2022-07-25 18:20] LABS: HCT 45.9 % (37.2-46.3); HGB 14.5 g/dL (12.0-15.0); MCH 30.1 pg (27.0-32.0); MCHC 31.6 g/dL (32.0-37.0); MCV 95.4 fL (80.0-97.0); Mean Platelet Volume 11.5 fL (9.5-12.2); NRBC Per 100 WBC 0 /100 WBCS (0.0-0.0); Platelet Count 210 X 10*3/uL (140-440); RBC 4.81 X 10*6/uL (4.10-5.20); RDW 12.8 % (11.5-14.5); WBC 6.56 X 10*3/uL (4.50-10.00)
[2022-07-25 19:06] LABS: % Iron Saturation 19.21 (12.00-45.00); ALT 14 U/L (8-44); AST 18 U/L (13-35); African American GFR (CKD) 124.3 (60.0-200.0); Albumin 4.6 g/dL (3.8-4.9); Albumin/Globulin Ratio 2.18 (1.60-3.17); Alkaline Phosphatase 70 U/L (41-126); BUN/Creat Ratio 28.77 Ratio (12.00-20.00); Blood Urea Nitrogen 20.2 mg/dL (9.0-27.0); Calcium 9.5 mg/dL (8.7-10.3); Carbon Dioxide 27.7 mmol/L (20.0-27.5); Chloride 103 mmol/L (96-109); Ferritin 85.7 ng/mL (10.0-291.0); Globulin 2.1 g/dL (1.6-3.3); Glucose 89 mg/dL (70-110); Iron 64 ug/dL (50-170); Magnesium 2.2 mg/dL (1.5-2.4); Non-African American GFR(CKD) 107.3 (60.0-200.0); Potassium 5.2 mmol/L (3.5-5.5); Sodium 140 mmol/L (135-145); Total Bilirubin <0.15 mg/dL (0.30-1.20); Total Iron Binding Capacity 333 ug/dL (228-460); Total Protein 6.6 g/dL (6.2-8.2)
[2022-07-26 11:47] LABS: Zinc, Serum 65 ug/dL (60-130)
[2022-07-27 06:10] LABS: Vit B1(Thiamine) 76 ug/L (38-122)
== END ==
LOC: BARWHC3 13:25
PROVIDERS: ATTEND Surgery
DX: Z48.815 Encounter for surgical aftercare following surgery on the digestive system (principal); Z98.84 Bariatric surgery status; E66.01 Morbid (severe) obesity due to excess calories; D50.8 Other iron deficiency anemias; E55.9 Vitamin D deficiency, unspecified; T56.894A Toxic effect of other metals, undetermined, initial encounter; K90.9 Intestinal malabsorption, unspecified; M19.90 Unspecified osteoarthritis, unspecified site; Z88.0 Allergy status to penicillin; Z88.1 Allergy status to other antibiotic agents; Z88.2 Allergy status to sulfonamides; Z88.5 Allergy status to narcotic agent; Z68.32 Body mass index [BMI] 32.0-32.9, adult
CPT/HCPCS: 80053; 82306; 82607; 82728; 82746; 83540; 83550; 83735; 84255; 84425; 84443; 84590; 84630; 85027; 99211

== ENCOUNTER → 2022-11-21 | Outpatient (CLI) | payer BC ==
[2022-11-21 14:03] VITALS: BP 110/75; PULSE 60; TEMP 98.7; BMI 32.9
--- NOTE | 2022-11-21 15:53 | P.HPBAR ---
Bariatric H&P - History & Physicial H&P Date: 11/21/22 History & Physicial: Visit/CC: sleeve F/U Patient initial contact: Initial weight: Initial weight in pounds: Height: 5 ft 5 in Initial BMI: Last weight: Current weight: 89.811 kg Current weight in pounds: 198.00 Current BMI: 32.9 [place] body weight (based on NIH guidelines): 56.699 kg Excess body weight loss: The patient is a 42 year-old F who presents for Bariatric Assessment. Patient resents today for sleep yesterday fall. She's had some minimal GERD. She denies any dysphagia. Past Medical History Past Medical History: Osteoarthritis (OA) Additional Past Medical History / Comment(s): on metformin for weight loss. heavy menstrual bleeding History of Any Multi-Drug Resistant Organisms: None Reported Past Surgical History: Bariatric Surgery, Section, Cholecystectomy, Tonsillectomy, Tubal Ligation, Uterine Ablation Additional Past Surgical History / Comment(s): LIPOMA REMOVED FROM RT THIGH. sleeve 06/22/21. Past Anesthesia/Blood Transfusion Reactions: Family History of Problems w/ Anesthesia, Postoperative Nausea & Vomiting (PONV) Additional Past Anesthesia/Blood Transfusion Reaction / Comm: FAMILY HISTORY OF PONV Past Psychological History: Anxiety Smoking Status: Former smoker Past Alcohol Use History: Occasional Additional Past Alcohol Use History / Comment(s): QUIT SMOKING 2003 Past Drug Use History: None Reported - Past Family History Father Family Medical History: Cancer, Diabetes Mellitus, Hypertension Additional Family Medical History / Comment(s): skin cancer Mother Family Medical History: Cancer Additional Family Medical History / Comment(s): breast cancer Surgical - Exam Vital Signs Temp Pulse BP 98.7 F 60 110/75 11/21/22 14:00 11/21/22 14:00 11/21/22 14:00 - General well developed, well nourished, no distress - Eyes PERRL - ENT normal pinna, normal nares - Neck no masses - Respiratory normal expansion - Cardiovascular Rhythm: regular - Abdomen Abdomen: soft, non tender Bariatric Assessment & Plan Plan: Status post sleeve gastrectomy. Patient's obesity is resolving. Her BMI is 33. Her GERD is minimal and will be observed. Bariatric Checklist Checklist: Plan: Checklist: EGD: 1. Hiatal hernia: 2. H. Pylori: HgbA1c: Vitamin D: Smoking: Never smoker Primary care physician referral: Dr. Dumont Psychiatry clearance: Cardiology clearance: Sleep study: Diet journal: VTE risk score: VTE risk level: Rehab needs at discharge:
== END ==
LOC: BARWHC3 13:28
PROVIDERS: ATTEND Surgery
DX: E66.01 Morbid (severe) obesity due to excess calories (principal); M19.90 Unspecified osteoarthritis, unspecified site; Z87.891 Personal history of nicotine dependence; Z98.84 Bariatric surgery status; K21.9 Gastro-esophageal reflux disease without esophagitis; Z88.1 Allergy status to other antibiotic agents; Z88.0 Allergy status to penicillin; Z88.2 Allergy status to sulfonamides; Z88.5 Allergy status to narcotic agent; Z68.33 Body mass index [BMI] 33.0-33.9, adult
CPT/HCPCS: 99211

== ENCOUNTER → 2023-01-23 | Outpatient (CLI) | payer BC ==
[2023-01-23 13:53] VITALS: BP 126/78; PULSE 72; TEMP 98; BMI 33.1
--- NOTE | 2023-02-14 08:38 | P.HPBAR ---
Bariatric H&P - History & Physicial H&P Date: 01/23/23 History & Physicial: Visit/CC: sleeve F/U Patient initial contact: Initial weight: Initial weight in pounds: Height: 5 ft 5 in Initial BMI: Last weight: 198 Current weight: 90.265 kg Current weight in pounds: 199.00 Current BMI: 33.1 [place] body weight (based on NIH guidelines): 56.699 kg Excess body weight loss: The patient is a 42 year-old F who presents for Bariatric Assessment. Patient resents today for sleeve gastrectomy follow-up. She's had some minimal GERD. Past Medical History Past Medical History: Osteoarthritis (OA) Additional Past Medical History / Comment(s): on metformin for weight loss. heavy menstrual bleeding History of Any Multi-Drug Resistant Organisms: None Reported Past Surgical History: Bariatric Surgery, Section, Cholecystectomy, Tonsillectomy, Tubal Ligation, Uterine Ablation Additional Past Surgical History / Comment(s): LIPOMA REMOVED FROM RT THIGH. sleeve 06/22/21. Past Anesthesia/Blood Transfusion Reactions: Family History of Problems w/ Anesthesia, Postoperative Nausea & Vomiting (PONV) Additional Past Anesthesia/Blood Transfusion Reaction / Comm: FAMILY HISTORY OF PONV Past Psychological History: Anxiety Smoking Status: Former smoker Past Alcohol Use History: Occasional Additional Past Alcohol Use History / Comment(s): QUIT SMOKING 2003 Past Drug Use History: None Reported - Past Family History Father Family Medical History: Cancer, Diabetes Mellitus, Hypertension Additional Family Medical History / Comment(s): skin cancer Mother Family Medical History: Cancer Additional Family Medical History / Comment(s): breast cancer Surgical - Exam Vital Signs Temp Pulse BP 98 F 72 126/78 01/23/23 13:50 01/23/23 13:50 01/23/23 13:50 - General well developed, well nourished, no distress - Eyes PERRL - ENT normal pinna - Abdomen Abdomen: soft, non tender Bariatric Assessment & Plan Plan: Resolving morbid obesity. Patient's GERD is minimal and will be observed. She'll follow-up in one weeks. Bariatric Checklist Checklist: Plan: Checklist: EGD: 1. Hiatal hernia: 2. H. Pylori: HgbA1c: Vitamin D: Smoking: Never smoker Primary care physician referral: Dr. Dumont Psychiatry clearance: Cardiology clearance: Sleep study: Diet journal: VTE risk score: VTE risk level: Rehab needs at discharge:
== END ==
LOC: BARWHC3 13:26
PROVIDERS: ATTEND Surgery
DX: E66.01 Morbid (severe) obesity due to excess calories (principal); K21.9 Gastro-esophageal reflux disease without esophagitis; M19.90 Unspecified osteoarthritis, unspecified site; Z98.84 Bariatric surgery status; Z68.33 Body mass index [BMI] 33.0-33.9, adult; Z88.2 Allergy status to sulfonamides; Z88.0 Allergy status to penicillin; Z88.5 Allergy status to narcotic agent; Z88.1 Allergy status to other antibiotic agents; Z87.891 Personal history of nicotine dependence; Z48.815 Encounter for surgical aftercare following surgery on the digestive system
CPT/HCPCS: 99211

== ENCOUNTER → 2023-04-12 | Outpatient (CLI) | payer BC ==
--- NOTE | 2023-04-13 20:04 | MM ---
Reason for Exam: Screening (asymptomatic). Last mammogram was performed 1 year(s) and 1 month(s) ago. Patient History: Menarche at age 13. First Full-Term at age 31. Late child-bearing (after 31). Hormonal Contraceptives, starting at age 17 for 16 years. Mother had breast cancer, age 63. Last menstrual period: 04/06/2023 Risk Values: Emma 5 year model risk: 1.3%. NCI Lifetime model risk: 18.9%. Prior Study Comparison: 11/25/2014 Bilateral Screening Mammogram, [facility]. 04/01/2021 Bilateral Screening Mammogram, [facility]. 04/04/2022 Bilateral MG 3D screening mammo w/cad, [facility]. Tissue Density: There are scattered fibroglandular densities. Findings: Analyzed By CAD. There is no suspicious group of microcalcifications or new suspicious mass in either breast. Overall Assessment: Negative, BI-RAD 1 Management: Screening Mammogram of both breasts in 1 year. . Patient should continue monthly self-breast exams. A clinical breast exam by your physician is recommended on an annual basis. This exam should not preclude additional follow-up of suspicious palpable abnormalities. Note on Emma scores and lifetime risk: 1. A Emma score greater than 3% is considered moderate risk. If this is the case, consider specialist referral to assess eligibility for a risk reducing agent. 2. If overall lifetime risk for the development of breast cancer is 20% or higher, the patient may qualify for future screening with alternating mammogram and breast MRI. Electronically signed and approved by: Jayro Fragoso M.D. Radiologist
== END | disposition home or self-care (01) ==
LOC: RADMAMWWP 13:11
PROVIDERS: ATTEND Obstetrics & Gynecology
DX: Z12.31 Encounter for screening mammogram for malignant neoplasm of breast (principal); Z80.3 Family history of malignant neoplasm of breast
CPT/HCPCS: 77063; 77067

== ENCOUNTER → 2023-04-17 | Outpatient (CLI) | payer BC ==
[2023-04-17 13:34] VITALS: BP 132/75; PULSE 72; TEMP 98.1; BMI 31.9
--- NOTE | 2023-05-10 09:31 | P.HPBAR ---
Bariatric H&P - History & Physicial H&P Date: 04/17/23 History & Physicial: Visit/CC: gastric sleeve F/U Patient initial contact: Initial weight: Initial weight in pounds: Height: 5 ft 5 in Initial BMI: Last weight: Current weight: 87.09 kg Current weight in pounds: 192.00 Current BMI: 31.9 [place] body weight (based on NIH guidelines): 56.699 kg Excess body weight loss: The patient is a 43 year-old F who presents for Bariatric Assessment. Patient presents today for sleeve gastrectomy fall. She's had some complaints of GERD. She's lost 7 pounds her last visit. Past Medical History Past Medical History: Osteoarthritis (OA) Additional Past Medical History / Comment(s): on metformin for weight loss. heavy menstrual bleeding History of Any Multi-Drug Resistant Organisms: None Reported Past Surgical History: Bariatric Surgery, Section, Cholecystectomy, Tonsillectomy, Tubal Ligation, Uterine Ablation Additional Past Surgical History / Comment(s): LIPOMA REMOVED FROM RT THIGH. sleeve 06/22/21. Past Anesthesia/Blood Transfusion Reactions: Family History of Problems w/ Anesthesia, Postoperative Nausea & Vomiting (PONV) Additional Past Anesthesia/Blood Transfusion Reaction / Comm: FAMILY HISTORY OF PONV Past Psychological History: Anxiety Smoking Status: Former smoker Past Alcohol Use History: Occasional Additional Past Alcohol Use History / Comment(s): QUIT SMOKING 2003 Past Drug Use History: None Reported - Past Family History Father Family Medical History: Cancer, Diabetes Mellitus, Hypertension Additional Family Medical History / Comment(s): skin cancer Mother Family Medical History: Cancer Additional Family Medical History / Comment(s): breast cancer Surgical - Exam Vital Signs Temp Pulse BP 98.1 F 72 132/75 04/17/23 13:32 04/17/23 13:32 04/17/23 13:32 - General well developed, well nourished, no distress - Eyes PERRL - ENT normal pinna - Neck no masses - Respiratory normal expansion - Cardiovascular Rhythm: regular - Abdomen Abdomen: soft, non tender Bariatric Assessment & Plan Plan: Status post sleeve gastrectomy. Patient is an excellent weight loss. Her GERD is minimal and will be observed. She'll follow-up in 4 weeks. Bariatric Checklist Checklist: Plan: Checklist: EGD: 1. Hiatal hernia: 2. H. Pylori: HgbA1c: Vitamin D: Smoking: Never smoker Primary care physician referral: Dr. Dumont Psychiatry clearance: Cardiology clearance: Sleep study: Diet journal: VTE risk score: VTE risk level: Rehab needs at discharge:
== END ==
LOC: BARWHC3 13:25
PROVIDERS: ATTEND Surgery
DX: K21.9 Gastro-esophageal reflux disease without esophagitis (principal); M19.90 Unspecified osteoarthritis, unspecified site; Z98.84 Bariatric surgery status; Z87.891 Personal history of nicotine dependence; Z88.1 Allergy status to other antibiotic agents; Z88.0 Allergy status to penicillin; Z88.2 Allergy status to sulfonamides; Z88.5 Allergy status to narcotic agent
CPT/HCPCS: 99211

== ENCOUNTER → 2023-04-17 | Outpatient (CLI) | payer BC ==
[2023-04-17 22:29] LABS: % Iron Saturation 18.73 (12.00-45.00); ALT 15 U/L (8-44); AST 19 U/L (13-35); Albumin 4.6 d/dL (3.8-4.9); Albumin/Globulin Ratio 2.71 Ratio (1.60-3.17); Alkaline Phosphatase 57 U/L (41-126); BUN/Creat Ratio 12.62 Ratio (12.00-20.00); Blood Urea Nitrogen 10.1 mg/dL (9.0-27.0); Calcium 9.5 mg/dL (8.7-10.3); Carbon Dioxide 26.4 mmol/L (21.6-31.8); Chloride 105 mmol/L (96-109); Ferritin 89.4 ng/mL (10.0-291.0); Globulin 1.7 d/dL (1.6-3.3); Glucose 75 mg/dL (70-110); Iron 53 UG/DL (50-170); Magnesium 2.1 mg/dL (1.5-2.4); Potassium 4.6 mmol/L (3.5-5.5); Sodium 142 mmol/L (135-145); Total Bilirubin <0.2 mg/dL (0.3-1.2); Total Iron Binding Capacity 283 UG/DL (228-460); Total Protein 6.3 d/dL (6.2-8.2)
[2023-04-18 06:05] LABS: HCT 42.7 % (37.2-46.3); HGB 13.9 d/dL (12.0-15.0); MCH 31.2 pg (27.0-32.0); MCHC 32.6 d/dL (32.0-37.0); MCV 95.7 FL (80.0-97.0); Mean Platelet Volume 10.8 FL (9.5-12.2); NRBC Per 100 WBC 0 X 10*3/uL (0.00-0.01); Platelet Count 213 X 10*3/uL (140-440); RBC 4.46 X 10*6/uL (4.10-5.20)
[2023-04-18 13:17] LABS: Zinc, Serum 64 ug/dL (60-130)
[2023-04-19 05:59] LABS: Vitamin A 46 ug/dL (38-106)
== END | disposition home or self-care (01) ==
LOC: LABWHC1 14:06
PROVIDERS: ATTEND Surgery
DX: E66.01 Morbid (severe) obesity due to excess calories (principal); D50.8 Other iron deficiency anemias; E44.0 Moderate protein-calorie malnutrition; E55.9 Vitamin D deficiency, unspecified; T56.894A Toxic effect of other metals, undetermined, initial encounter
CPT/HCPCS: 36415; 80053; 82306; 82607; 82728; 82746; 83540; 83550; 83735; 84255; 84425; 84443; 84590; 84630; 85027

== ENCOUNTER → 2023-06-26 | Outpatient (CLI) | payer BC ==
[2023-06-26 11:07] VITALS: BP 138/84; PULSE 87; TEMP 99.1; BMI 31.4
--- NOTE | 2023-06-27 11:34 | P.HPBAR ---
Bariatric H&P - History & Physicial H&P Date: 06/26/23 History & Physicial: Visit/CC: bariatric f/u Patient initial contact: Initial weight: Initial weight in pounds: Height: 5 ft 5 in Initial BMI: Last weight: Current weight: 85.729 kg Current weight in pounds: 189.00 Current BMI: 31.4 [place] body weight (based on NIH guidelines): 56.699 kg Excess body weight loss: The patient is a 43 year-old F who presents for Bariatric Assessment. Patient presents today for bariatric follow-up. She is loss 23 pounds her last visit. She has minimal complaints of GERD. She otherwise feels well. Past Medical History Past Medical History: Osteoarthritis (OA) Additional Past Medical History / Comment(s): on metformin for weight loss. heavy menstrual bleeding History of Any Multi-Drug Resistant Organisms: None Reported Past Surgical History: Bariatric Surgery, Section, Cholecystectomy, Tonsillectomy, Tubal Ligation, Uterine Ablation Additional Past Surgical History / Comment(s): LIPOMA REMOVED FROM RT THIGH. sleeve 06/22/21. Past Anesthesia/Blood Transfusion Reactions: Family History of Problems w/ Ane sthesia, Postoperative Nausea & Vomiting (PONV) Additional Past Anesthesia/Blood Transfusion Reaction / Comm: FAMILY HISTORY OF PONV Past Psychological History: Anxiety Smoking Status: Former smoker Past Alcohol Use History: Occasional Additional Past Alcohol Use History / Comment(s): QUIT SMOKING 2003 Past Drug Use History: None Reported - Past Family History Father Family Medical History: Cancer, Diabetes Mellitus, Hypertension Additional Family Medical History / Comment(s): skin cancer Mother Family Medical History: Cancer Additional Family Medical History / Comment(s): breast cancer Surgical - Exam Vital Signs Temp Pulse BP 99.1 F 87 138/84 06/26/23 10:47 06/26/23 10:47 06/26/23 10:47 - General well developed, well nourished, no distress - Eyes PERRL - ENT normal pinna - Neck no masses - Respiratory normal expansion - Cardiovascular Rhythm: regular - Abdomen Abdomen: soft, non tender Bariatric Assessment & Plan Plan: patient still quite well. Her GERD is minimal will be observed. She'll follow-up in 4 weeks. Bariatric Checklist Checklist: Plan: Checklist: EGD: 1. Hiatal hernia: 2. H. Pylori: HgbA1c: Vitamin D: Smoking: Never smoker Primary care physician referral: Dr. Dumont Psychiatry clearance: Cardiology clearance: Sleep study: Diet journal: VTE risk score: VTE risk level: Rehab needs at discharge:
== END ==
LOC: BARWHC3 10:21
PROVIDERS: ATTEND Surgery
DX: K21.9 Gastro-esophageal reflux disease without esophagitis (principal); M19.90 Unspecified osteoarthritis, unspecified site; N92.0 Excessive and frequent menstruation with regular cycle; Z88.8 Allergy status to other drugs, medicaments and biological substances; Z88.2 Allergy status to sulfonamides; Z88.0 Allergy status to penicillin; Z88.5 Allergy status to narcotic agent; Z87.891 Personal history of nicotine dependence; Z90.49 Acquired absence of other specified parts of digestive tract; Z98.84 Bariatric surgery status
CPT/HCPCS: 99211

== ENCOUNTER → 2023-09-08 | Outpatient (CLI) | payer BC ==
--- NOTE | 2023-09-08 13:20 | US ---
EXAMINATION TYPE: US venous doppler duplex UE LT DATE OF EXAM: 09/08/2023 COMPARISON: NONE CLINICAL INDICATION: Female, 43 years old with history of I89.0 LYMPHEDEMA,NOT ELSEWHERE CLASSIFIED; Brachioplasty x 6 weeks per patient. Fingers 4 and 5 swelling since. No redness. SIDE PERFORMED: Left Left Arm: Negative for DVT IMPRESSION: Grayscale, color doppler, spectral doppler imaging performed of the deep veins of the upper extremiti es. There is normal flow, compressibility and vascular waveforms.
== END | disposition home or self-care (01) ==
LOC: RADUSWWP 12:20
PROVIDERS: ATTEND Family Medicine
DX: I89.0 Lymphedema, not elsewhere classified (principal)

== ENCOUNTER → 2023-12-07 | Outpatient (CLI) | payer BC ==
--- NOTE | 2023-12-08 09:54 | US ---
EXAMINATION TYPE: US pelvis complete transvag DATE OF EXAM: 12/07/2023 COMPARISON: NONE CLINICAL INDICATION: Female, 43 years old with history of N92.0 EXCESSIVE AND FREQUENT MENSTRUATION W ITH REG; TECHNIQUE: Transabdominal sonographic images of the pelvis were acquired. Transvaginal sonographi c images were medically necessary to better assess the following anatomy: EXAM MEASUREMENTS: Uterus: 11.2 x 5.5 x 5.6 cm. cm Endometrial Stripe: 0.5 cm Right Ovary: 3.1 x 2.0 cm Left Ovary: 2.6 x 1.9 cm There is a 2.6 x 2.2 x 2.4 cm mass in the posterior uterus consistent with a fibroid. There is a 1.8 x 1.5 cm complex mass in the right ovary. There is a 1.6 x 1.5 cm complex mass in the left ovary. Spectral, color and waveform doppler imaging shows good arterial and venous flow within the ovaries ; there is no evidence for ovarian torsion. There is no fluid in the cul-de-sac. IMPRESSION: 1. Small uterine fibroid posterior uterus. 2. Normal endometrium. 3. Single lateral nonspecific sub-2 cm complex ovarian masses. Short-term follow-up in 4-6 weeks is r ecommended for further evaluation.
== END | disposition home or self-care (01) ==
LOC: RADUSWWP 15:44
PROVIDERS: ATTEND Family Medicine
DX: D25.9 Leiomyoma of uterus, unspecified (principal); N83.8 Other noninflammatory disorders of ovary, fallopian tube and broad ligament; N92.0 Excessive and frequent menstruation with regular cycle
CPT/HCPCS: 76830; 76856

== ENCOUNTER → 2023-12-18 | Outpatient (CLI) | payer BC ==
[2023-12-18 12:43] VITALS: BP 127/81; PULSE 77; RESP 14; TEMP 98.4; BMI 32.5
--- NOTE | 2023-12-18 17:25 | P.HPBAR ---
Bariatric H&P - History & Physicial H&P Date: 12/18/23 History & Physicial: Visit/CC: follow up Patient initial contact: Initial weight: Initial weight in pounds: Height: 5 ft 5 in Initial BMI: Last weight: Current weight: 88.904 kg Current weight in pounds: 196.00 Current BMI: 32.5 [place] body weight (based on NIH guidelines): 56.699 kg Excess body weight loss: The patient is a 43 year-old F who presents for Bariatric Assessment.patient presents today for bariatric follow-up. She is gained 7 pounds her last visit. She has minimal complaints of GERD. Past Medical History Past Medical History: Osteoarthritis (OA) Additional Past Medical History / Comment(s): on metformin for weight loss. heavy menstrual bleeding History of Any Multi-Drug Resistant Organisms: None Reported Past Surgical History: Bariatric Surgery, Section, Cholecystectomy, Tonsillectomy, Tubal Ligation, Uterine Ablation Additional Past Surgical History / Comment(s): LIPOMA REMOVED FROM RT THIGH. sleeve 06/22/21. Past Anesthesia/Blood Transfusion Reactions: Family History of Problems w/ Anesthesia, Postoperative Nausea & Vomiting (PONV) Additional Past Anesthesia/Blood Transfusion Reaction / Comm: FAMILY HISTORY OF PONV Past Psychological History: Anxiety Smoking Status: Former smoker Past Alcohol Use History: Occasional Additional Past Alcohol Use History / Comment(s): QUIT SMOKING 2003 Past Drug Use History: None Reported - Past Family History Father Family Medical History: Cancer, Diabetes Mellitus, Hypertension Additional Family Medical History / Comment(s): skin cancer Mother Family Medical History: Cancer Additional Family Medical History / Comment(s): breast cancer Surgical - Exam Vital Signs Temp Pulse Resp BP 98.4 F 77 14 127/81 12/18/23 12:00 12/18/23 12:00 12/18/23 12:00 12/18/23 12:00 - General well developed, well nourished, no distress - Eyes PERRL - ENT normal pinna - Neck no masses - Respiratory normal expansion - Cardiovascular Rhythm: regular - Abdomen Abdomen: soft, non tender Bariatric Assessment & Plan Plan: status post sleeve gastrectomy. Patient's GERD is minimal bleeding observed. She'll follow-up in 3 months. Bariatric Checklist Checklist: Plan: Checklist: EGD: 1. Hiatal hernia: 2. H. Pylori: HgbA1c: Vitamin D: Smoking: Never smoker Primary care physician referral: Dr. Dumont Psychiatry clearance: Cardiology clearance: Sleep study: Diet journal: VTE risk score: VTE risk level: Rehab needs at discharge:
== END ==
LOC: BARWHC3 09:22
PROVIDERS: ATTEND Surgery
DX: K21.9 Gastro-esophageal reflux disease without esophagitis (principal); Z98.84 Bariatric surgery status; Z87.891 Personal history of nicotine dependence; Z88.1 Allergy status to other antibiotic agents; Z88.0 Allergy status to penicillin; Z88.5 Allergy status to narcotic agent; Z88.2 Allergy status to sulfonamides; Z90.3 Acquired absence of stomach [part of]
CPT/HCPCS: 99211

== ENCOUNTER → 2024-04-15 | Outpatient (CLI) | payer BC ==
--- NOTE | 2024-04-15 18:55 | MM ---
Reason for Exam: Screening (asymptomatic). Last screening mammogram was performed 12 month(s) ago. Patient History: Menarche at age 13. First Full-Term at age 31. Late child-bearing (after 31). Hysterectomy at age 43. Hormonal Contraceptives, starting at age 17 for 16 years. Mother had breast cancer, age 63. Risk Values: Emma 5 year model risk: 1.4%. NCI Lifetime model risk: 18.8%. Prior Study Comparison: 04/01/2021 Bilateral Screening Mammogram, [facility]. 04/04/2022 Bilateral MG 3D screening mammo w/cad, [facility]. 04/12/2023 Bilateral MG 3D screening mammo w/cad, [facility]. Tissue Density: There are scattered areas of fibroglandular density. Findings: Analyzed By CAD. Unchanged asymmetric densities on the left. There is no suspicious group of microcalcifications or new suspicious mass in either breast. Overall Assessment: Benign, BI-RAD 2 Management: Screening Mammogram of both breasts in 1 year. . Patient should continue monthly self-breast exams. A clinical breast exam by your physician is recommended on an annual basis. This exam should not preclude additional follow-up of suspicious palpable abnormalities. Note on Emma scores and lifetime risk: 1. A Emma score greater than 3% is considered moderate risk. If this is the case, consider specialist referral to assess eligibility for a risk reducing agent. 2. If overall lifetime risk for the development of breast cancer is 20% or higher, the patient may qualify for future screening with alternating mammogram and breast MRI. Electronically signed and approved by: Jayro Fragoso M.D. Radiologist
== END | disposition home or self-care (01) ==
LOC: RADMAMWWP 09:20
PROVIDERS: ATTEND Family Medicine
DX: Z12.31 Encounter for screening mammogram for malignant neoplasm of breast
CPT/HCPCS: 77063; 77067